=== PATIENT | male | born 1955 | race Caucasian/White ===

== ENCOUNTER 2019-12-10 00:58 | Outpatient (CLI) | payer MEDICARE, SELFPAY ==
[2019-12-10 18:59] LABS: SARS-CoV-2 RNA PCR Negative
== END 2019-12-10 00:59 | disposition home or self-care (01) ==
LOC: ANHCOVIDDT 00:59
PROVIDERS: PCP Internal Medicine; Visit Provider Internal Medicine Cardiovascular Disease
DX: Z01.812 Encounter for preprocedural laboratory examination (principal); Z20.828 Contact with and (suspected) exposure to other viral communicable diseases
CPT/HCPCS: 87635; C9803; U0003

== ENCOUNTER 2019-12-12 05:23 | Day surgery (SDC) | payer MEDICARE, SELFPAY ==
[2019-12-09 19:06] VITALS: BMI 54.1
--- NOTE | 2019-12-12 08:30 | ECG_ITS ---
Measurements Intervals [place] Rate: 132 P: MT: 0 QRS: -39 QRSD: 143 T: 29 QT: 210 QTc: 312 Interpretive Statements ATRIAL FLUTTER/TACHYCARDIA WITH RAPID VENTRICULAR RESPONSE LEFT AXIS DEVIATION RIGHT BUNDLE BRANCH BLOCK BASELINE ARTIFACT- I, III, AVF ABNORMAL ECG Electronically Signed On 12-12-2019 9:06:37 CDT by Neville Gould D.O.
[2019-12-12 09:14] VITALS: BP 153/96; PULSE 133; RESP 26; TEMP 36.7; O2SAT 100
[2019-12-12 09:21] LABS: Anion Gap 5 mmol/L (8-16); Blood Urea Nitrogen 31 mg/dL (9-20); Calcium 8.8 mg/dL (8.4-10.2); Carbon Dioxide 37 mmol/L (22-30); Chloride 96 mmol/L (98-107); Estimated CRCL calculation 82 ml/min; Estimated Glomerular Filt Rate > 60; Glucose 192 mg/dL (75-110); Potassium 4.4 mmol/L (3.4-5.0); Sodium 138 mmol/L (137-145)
--- NOTE | 2019-12-12 09:46 | WPDANESEPP ---
Anes - Eval Pre Procedure Procedure: Operation Date: 12/12/19 10:00 Proposed Procedures p Electrical Cardioversion - Thompson Seth MD Date/Time: 12/12/19 09:46 Surgeon: Rolo Preop Diagnosis: afib Pre Op Diagnosis: a-fib Patient Data Age: 64 Gender: M Height: 1.68 m Weight: 152 kg Last Vital Signs Temp 36.7 C 12/12/19 09:14 Pulse 133 H 12/12/19 09:14 Resp 26 H 12/12/19 09:14 BP 153/96 H 12/12/19 09:14 Pulse Ox 100 12/12/19 09:14 Allergies Allergy/AdvReac Type Severity Reaction Status Date / Time ibuprofen Allergy Unknown Other Verified 12/09/19 18:35 Penicillins Allergy Unknown Unknown Verified 12/09/19 18:35 Home Medications Medication Instructions Recorded Confirmed Type budesonide-formoterol HFA 160 2 puff INHALATION Q12H #10.2 gm 04/04/19 12/09/19 Rx mcg-4.5 mcg/actuation aerosol inhaler bupropion HCl 300 mg 24 hr tablet, 300 mg PO QAM 06/02/19 12/09/19 History extended release carvedilol 12.5 mg tablet 12.5 mg PO Q12H 06/02/19 12/09/19 History fluticasone propionate 50 1 spray NASAL BID 06/02/19 12/09/19 History mcg/actuation nasal spray,suspension insulin lispro 100 unit/mL 1 sliding scale dose SUB-Q 06/02/19 12/09/19 History subcutaneous cartridge USEASDIRECTD metformin 1,000 mg tablet 1,000 mg PO BID 06/02/19 12/09/19 History rivaroxaban 20 mg tablet 20 mg PO DAILY 06/02/19 12/09/19 History simvastatin 40 mg tablet 40 mg PO DAILY 06/02/19 12/09/19 History tamsulosin 0.4 mg capsule 0.4 mg PO DAILY 06/02/19 12/09/19 History tiotropium bromide 18 mcg capsule 1 cap INHALATION DAILY 06/02/19 12/09/19 History with inhalation device albuterol sulfate 2 puff INHALATION Q4-6H PRN 12/09/19 12/09/19 History amiodarone 400 mg PO DAILY 12/09/19 12/12/19 History furosemide 20 mg PO DAILY 12/09/19 12/09/19 History hydrocodone-acetaminophen 1 tablet PO Q8H PRN 12/09/19 12/09/19 History insulin NPH isoph U-100 human 65 unit SUBCUT BID 12/09/19 12/09/19 History [Humulin N NPH U-100 Insulin] valsartan-hydrochlorothiazide 1 tablet PO DAILY 12/09/19 12/09/19 History [Diovan HCT] Laboratory Tests 12/12/19 08:57 Sodium 138 mmol/L mmol/L (137-145) Potassium 4.4 mmol/L mmol/L (3.4-5.0) Chloride 96 mmol/L L mmol/L (98-107) Carbon Dioxide 37 mmol/L H mmol/L (22-30) Anion Gap 5 mmol/L L mmol/L (8-16) BUN 31 mg/dL H mg/dL (9-20) Creatinine 1.10 mg/dL mg/dL (0.7-1.3) Estim Creat Clear Calc 82 ml/min ml/min Estimated GFR > 60 (59 - ) Glucose 192 mg/dL H mg/dL (75-110) Calcium 8.8 mg/dL mg/dL (8.4-10.2) Magnesium 2.0 mg/dL mg/dL (1.6-2.3) ECG: afib Patient hx anesthesia problems: none Family hx anesthesia problems: none [facility] Past Medical History Medical History (Updated 12/12/19 @ 09:47 by Kaya Ordoñez CRNA) Anxiety Aortic aneurysm COPD (chronic obstructive pulmonary disease) DM (diabetes mellitus) Lung nodule Morbid obesity with BMI of 50.0-59.9, adult Neuropathy On home O2 NILE (obstructive sleep apnea) Rectal fistula Surgical History Surgical History (Updated 06/02/19 @ 10:34 by Yoni Levine CMA) History of cataract surgery History of hemorrhoidectomy Family History Family History (Updated 01/13/17 @ 09:40 by DOCTOR UNKNOWN) Mother Cerebrovascular accident Father Family history of sleep apnea Family history of atrial fibrillation Social History Social History Smoking packs per day: 10 Smoking cigarettes per day: 200.0 Years smoked: 30 Smoking pack-years: 300.00 Smoking status: Former smoker Tobacco type: cigarettes Smoking end date: 03/02/05 Additional smoking assessment comments: QUIT 2005. 03/03 PPD X 30 YEARS Alcohol intake: former Substance use: unknown Substance use type: does not use Living arrangements: alone Gender identity (if verbalized by the patient): Male Spiritual care concerns: No Exam Day of Proc
--- NOTE | 2019-12-12 09:53 | WPDHPUPDATE1 ---
History and Physical Update Update Date/Time: 12/12/19 09:53 History and Physical has been reviewed, including an updated exam of the patient. There are NO changes in the patient's condition. Risks, benefits, and alternatives have been discussed and questions answered. Patient agrees to proceed with procedure. Subjective: Patient with diastolic heart failure, sleep apnea, morbid obesity. Also has atrial flutter brought to the hospital because outpatient elective cardioversion Objective: Regularly irregular. 1+ bilateral lower extremity edema. Ulceration noted to the left lateral lower extremity. Nasal cannula in place Assessment: 1. Atrial flutter with rapid ventricular response 2. Morbid obesity 3. Chronic respiratory failure 4. Sleep apnea Plan: Outpatient elective cardioversion with anesthesia
--- NOTE | 2019-12-12 09:55 | WPDMODSED ---
Moderate Sedation Note-Pt Data Patient Data Diagnosis: Atrial flutter Present Complaint: Atrial flutter Procedure to be performed/Plan: Electrical Cardioversion Allergies Allergy/AdvReac Type Severity Reaction Status Date / Time ibuprofen Allergy Unknown Other Verified 12/09/19 18:35 Penicillins Allergy Unknown Unknown Verified 12/09/19 18:35 Home Medications Medication Instructions Recorded Confirmed Type budesonide-formoterol HFA 160 2 puff INHALATION Q12H #10.2 gm 04/04/19 12/09/19 Rx mcg-4.5 mcg/actuation aerosol inhaler bupropion HCl 300 mg 24 hr tablet, 300 mg PO QAM 06/02/19 12/09/19 History extended release carvedilol 12.5 mg tablet 12.5 mg PO Q12H 06/02/19 12/09/19 History fluticasone propionate 50 1 spray NASAL BID 06/02/19 12/09/19 History mcg/actuation nasal spray,suspension insulin lispro 100 unit/mL 1 sliding scale dose SUB-Q 06/02/19 12/09/19 History subcutaneous cartridge USEASDIRECTD metformin 1,000 mg tablet 1,000 mg PO BID 06/02/19 12/09/19 History rivaroxaban 20 mg tablet 20 mg PO DAILY 06/02/19 12/09/19 History simvastatin 40 mg tablet 40 mg PO DAILY 06/02/19 12/09/19 History tamsulosin 0.4 mg capsule 0.4 mg PO DAILY 06/02/19 12/09/19 History tiotropium bromide 18 mcg capsule 1 cap INHALATION DAILY 06/02/19 12/09/19 History with inhalation device albuterol sulfate 2 puff INHALATION Q4-6H PRN 12/09/19 12/09/19 History amiodarone 400 mg PO DAILY 12/09/19 12/12/19 History furosemide 20 mg PO DAILY 12/09/19 12/09/19 History hydrocodone-acetaminophen 1 tablet PO Q8H PRN 12/09/19 12/09/19 History insulin NPH isoph U-100 human 65 unit SUBCUT BID 12/09/19 12/09/19 History [Humulin N NPH U-100 Insulin] valsartan-hydrochlorothiazide 1 tablet PO DAILY 12/09/19 12/09/19 History [Diovan HCT] Current Medications: Active Medications Sodium Chloride (Normal Saline Iv) 1,000 mls @ 30 mls/hr IV CONT .Q24H [facility] Sedation/Anesthesia: No previous sedation/anesthesia problems (including family history). [facility] Past Medical History Medical History Anxiety Aortic aneurysm COPD (chronic obstructive pulmonary disease) DM (diabetes mellitus) Lung nodule Morbid obesity with BMI of 50.0-59.9, adult Neuropathy On home O2 NILE (obstructive sleep apnea) Rectal fistula Surgical History Surgical History History of cataract surgery History of hemorrhoidectomy Family History Family History Mother Cerebrovascular accident Father Family history of sleep apnea Family history of atrial fibrillation Social History Social History Smoking packs per day: 10 Smoking cigarettes per day: 200.0 Years smoked: 30 Smoking pack-years: 300.00 Smoking status: Former smoker Tobacco type: cigarettes Smoking end date: 03/02/05 Additional smoking assessment comments: QUIT 2005. 03/03 PPD X 30 YEARS Alcohol intake: former Substance use: unknown Substance use type: does not use Living arrangements: alone Gender identity (if verbalized by the patient): Male Spiritual care concerns: No Mod Sed Physical Exam Physical Exam Pre Procedural Exam: Normal: Appearance, Eyes, Ears, Lungs, Heart Size and Neuro Exam and Variation: Nose (Nasal cannula in place), Neck (Very short neck, sick), Throat (Small airway), Airway, Heart Rate (Tachycardic), Heart Rhythm (Regularly irregular), Extremities (Edema and wound noted) and Skin (As above) Hours since solid foods: 12 Hours since liquid intake: 12 Internal Medicine - PN: Obj Da Vital Signs Vital Signs: Vital Signs - 24 hr 12/12/19 09:14 Temperature 36.7 C Pulse Rate 133 H Respiratory Rate 26 H Blood Pressure 153/96 H Pulse Oximetry 100 Meds/Results Medications: Active Medications Generic Name Dose Route S
--- NOTE | 2019-12-12 10:05 | WPDANESEFPP ---
Anes - Eval Final PreProcedure Day of Procedure 12/12/19 10:05 Patient weight: morbidly obese Heart: irregular rhythm Lungs: clear to auscultation Airway: Mallampati scale class III Neurological: alert and oriented Last oral intake: >/= 8 hours ASA classification: IV Emergent: no Anesthetic plan: proceed Anesthesia type and monitoring: general GIVS and standard monitoring Informed Consent: The patient's anesthetic plan and its attendant risks and benefits were discussed with the patient/family/POA. Questions were solicited and answers provided to the satisfaction of the patient/family/POA.
--- NOTE | 2019-12-12 10:09 | P.PCNCVR_ITS ---
Cardioversion Cardioversion Date of procedure: 12/12/19 Procedure: Electrical cardioversion Pre-op diagnosis: Atrial flutter Post-op diagnosis: same Indications: Atrial flutter Description of procedure: After discussing the risks, benefits alternatives of the procedure the patient agreeable via verbal and written informed consent. Risks discussed included skin irritation or burn, shocking into more problematic heart rhythm, adverse reaction to anesthesia, stroke. Anesthesia provided sedation Complications: None Blood loss: None Sedation: Propofol per Anesthesia. Please see separate report Findings: After adequate sedation, the previously placed anterior and posterior defibrillator pads were in place. Two hundred joules of synchronized biphasic energy was used to restore sinus rhythm from atrial flutter. Conclusion: Successful roman catholic of sinus rhythm from atrial flutter using 200 joules of biphasic synchronized energy
--- NOTE | 2019-12-12 10:15 | ECG_ITS ---
Measurements Intervals [place] Rate: 100 P: 13 [place]: 182 QRS: 13 QRSD: 146 T: 14 QT: 370 QTc: 478 Interpretive Statements SINUS TACHYCARDIA RIGHT BUNDLE BRANCH BLOCK ABNORMAL ECG Electronically Signed On 12-12-2019 15:45:38 CDT by Neville Gould D.O.
[2019-12-12 10:30] VITALS: BP 150/93; PULSE 104; RESP 20; O2SAT 94
[2019-12-12 10:45] VITALS: BP 151/86; PULSE 109; RESP 18; O2SAT 95
[2019-12-12 11:00] VITALS: BP 151/73; PULSE 107; RESP 21; O2SAT 94
[2019-12-12 11:15] VITALS: BP 130/91; PULSE 108; RESP 23; O2SAT 98
== END 2019-12-12 11:53 | disposition home or self-care (01) ==
PROVIDERS: PCP Internal Medicine; Visit Provider Internal Medicine Cardiovascular Disease
PROC: 5A2204Z Restoration of Cardiac Rhythm, Single (ICD-10-PCS; principal; 2019-12-12 10:00)
DX: I48.92 Unspecified atrial flutter (principal); E11.40 Type 2 diabetes mellitus with diabetic neuropathy, unspecified; G47.33 Obstructive sleep apnea (adult) (pediatric); F41.9 Anxiety disorder, unspecified; I71.4 Abdominal aortic aneurysm, without rupture; Z99.81 Dependence on supplemental oxygen; Z79.01 Long term (current) use of anticoagulants; Z79.4 Long term (current) use of insulin; Z79.84 Long term (current) use of oral hypoglycemic drugs; Z87.891 Personal history of nicotine dependence
CPT/HCPCS: 36415; 80048; 83735; 92960; 93005; J2704

== ENCOUNTER 2020-05-27 18:56 | Inpatient (IN) | payer MEDICARE, MEDICAID, SELFPAY ==
--- NOTE | ~2020-05-27 | XR_ITS ---
EXAMINATION: XR chest 1V portable EXAM DATE: 05/27/2020 20:30 INDICATION: Shortness of breath. Aortic aneurysm. COPD. TECHNIQUE: Portable AP frontal chest x-ray was obtained. Comparison is made to prior examination from 10/15/2016. FINDINGS: There is enlarged heart size and mediastinum widening. Lungs are poorly penetrated. There i s pulmonary vascular congestion. There may be pulmonary edema. No dense confluent consolidation or pn eumothorax. No sizable pleural effusion. There are no osseous abnormalities identified. IMPRESSION: 1. Cardiomegaly, congestion and possible pulmonary edema. 2. Prominent mckayla and superior mediastinum differential diagnosis includes large amount of mediastin al fat, lymphadenopathy, pulmonary arterial hypertension, aortic aneurysm. This is more pronounced th an prior study. Consider follow-up chest CT. Reviewed, dictated and finalized at location A. IMPRESSION: 1. Cardiomegaly, congestion and possible pulmonary edema. 2. Prominent mckayla and superior mediastinum differential diagnosis includes lar ge amount of mediastinal fat, lymphadenopathy, pulmonary arterial hypertension, aortic aneurysm. This is more pronounced than prior study. Consider follow-up chest CT.
--- NOTE | ~2020-05-27 | CT_ITS ---
EXAMINATION: CT brain wo con EXAM DATE: 05/27/2020 20:06 INDICATION: Left leg weakness, hit head, chronic anticoagulation. TECHNIQUE: Spiral CT of the head was performed without contrast. Axial, coronal and sagittal images were reviewed. The dose-length product (DLP) for this examination was 681.00 mGy-cm. The exposure w as tailored according to patient size, and iterative reconstruction (ASIR) was used as additional dos e reduction technique. There is no prior study for comparison. FINDINGS: There is no acute intraparenchymal hemorrhage. No evidence of intraparenchymal brain mass lesion. No evidence of acute infarction. Please note that initial head CT has limited sensitivity f or small or acute infarctions. There is mild to moderate periventricular and subcortical hypodensity, nonspecific but probably related to small vessel ischemic disease. There is mild prominence of the sulci and ventricles related to cerebral atrophy. There is intracranial carotid arteriosclerosis. There are no extra-axial collections. There is no mass effect or midline shift. Patient has had bi lateral ocular lens surgery. Soft tissue is unremarkable. The visualized sinuses and mastoid air ce lls are well aerated. IMPRESSION: 1. No acute intracranial findings. 2. Chronic age related findings. Reviewed, dictated and finalized at location A.
--- NOTE | ~2020-05-27 | XR_ITS ---
EXAMINATION: XR hip LT 2V w AP pelvis EXAM DATE: 05/27/2020 20:31 INDICATION: Fall, left hip pain. TECHNIQUE: Left hip frontal, 'frog leg' projections for interpretation. Frontal projection pelvis. There is no prior study for comparison. FINDINGS: Smooth left hip femoral head contour, no radiographic evidence of avascular necrosis. Ther e are no acute pelvic or left hip fractures or dislocations identified. There is no subcutaneous gas . The soft tissue is unremarkable. There are no radiopaque foreign bodies. IMPRESSION: No acute osseous findings. Reviewed, dictated and finalized at location A. IMPRESSION: No acute osseous findings.
--- NOTE | ~2020-05-27 | XR_ITS ---
EXAMINATION: XR lumbar spine 2-3V EXAM DATE: 05/27/2020 20:31 INDICATION: Fall, back pain. Initial encounter. TECHNIQUE: Lumber spine frontal, lateral, lateral L5-S1 projections for interpretation. There is no prior study for comparison. FINDINGS: Study limited from underpenetration. There may be a few millimeters of retrolisthesis L5 o n S1. Otherwise the vertebral bodies appear aligned. Mild diffuse loss of vertebral body heights. No acute fracture line is identified. Sacrum, sacroiliac joints, sacral arcuate lines are intact on the frontal image. Evidence of mild lumbar disc disease. Facet joints poorly visualized but there is aimee e arthropathy. IMPRESSION: Limited exam without acute fracture identified. Reviewed, dictated and finalized at location A.
--- NOTE | ~2020-05-27 | CT_ITS ---
EXAMINATION: CT diagnostic chest wo con EXAM DATE: 05/30/2020 09:45 INDICATION: History of 4 mm RUL nodule. TECHNIQUE: Spiral CT of the chest without contrast. Axial, coronal and sagittal images were reviewe d. Coronal maximum intensity pixel images of chest reviewed. The dose-length product (DLP) for this examination was 1080.79 mGy-cm. The exposure was tailored according to patient size (auto mA exposu re control), and iterative reconstruction (ASIR) was used as additional dose reduction technique. Com parison is made to prior examination from 01/11/2016. FINDINGS: There is scattered bibasilar linear atelectasis. Previously seen right upper lobe 4 mm nod ule has decreased in size, now punctate. This is postinfectious. There are no pleural or pericardial effusions. Tracheobronchial tree is patent. There is no mediastinal, hilar or axillary lymphaden opathy. There is no pneumothorax. There is mild cardiomegaly. No evidence of coronary arterial c alcification. Upper abdomen is unremarkable. There is mild to moderate thoracic spondylosis withou t osteoblastic or osteolytic lesions identified. There are old left rib fractures. IMPRESSION: 1. Scattered bibasilar subsegmental atelectasis. 2. No suspicious pulmonary nodules. 3. Cardiomegaly. Reviewed, dictated and finalized at location A.
[2020-05-27 19:01] VITALS: BP 158/88; PULSE 74; RESP 22; TEMP 36.9; O2SAT 98
--- NOTE | 2020-05-27 19:01 | ECG_ITS ---
Measurements Intervals [place] Rate: 70 P: -22 [place]: 150 QRS: 45 QRSD: 127 T: 16 QT: 375 QTc: 406 Interpretive Statements SINUS RHYTHM RIGHT BUNDLE BRANCH BLOCK BASELINE ARTIFACT- II, III, AVL, AVF, V3-V4 ABNORMAL ECG Electronically Signed On 05-27-2020 20:36:12 CDT by Neville Gould D.O.
--- NOTE | 2020-05-27 19:38 | ED.GENADULT ---
HPI - General Adult General Chief complaint: Extremity Problem,Nontraumatic Stated complaint: lower extremity swelling Time Seen by Provider: 05/27/20 19:03 Source: patient Mode of arrival: EMS Limitations: no limitations History of Present Illness HPI narrative: This is a 64 year old male with history of COPD, chronic O2 4L NC , NILE on CPAP, CHF who presents for evaluation of leg swelling and scrotal swelling. Patient has chronic swelling to his legs but he states he now has swelling to his scrotum since Thursday. He reports that his left leg seems to give out and this caused him to fall on . He reports his left leg has felt weak for over 1 week. He denies left arm weakness. She reports bilateral neuropathy in both feet. He states he hit his head on but he denies LOC. He takes Xarelto daily for atrial flutter. He also notices he has a chronic wound to his left lower leg that has worsened since Thursday. He reports drainage but denies pain. He denies fever, chills, nausea, or vomiting. He does reports worsening shortness of breath but he denies cough or chest pain. His crop ranch hand is Dr. Seth and his central office supervisor is Dr. Dean. Related Data Home Medications Medication Instructions Recorded Confirmed bupropion HCl 300 mg 24 hr tablet, 300 mg PO QAM 06/02/19 05/28/20 extended release carvedilol 12.5 mg tablet 12.5 mg PO Q12H 06/02/19 05/28/20 insulin lispro 100 unit/mL 50 unit SUB-Q AC 06/02/19 05/28/20 subcutaneous cartridge metformin 1,000 mg tablet 1,000 mg PO BID 06/02/19 05/28/20 simvastatin 40 mg tablet 40 mg PO DAILY 06/02/19 05/28/20 tamsulosin 0.4 mg capsule 0.4 mg PO DAILY 06/02/19 05/28/20 tiotropium bromide 18 mcg capsule 1 cap INHALATION DAILY 06/02/19 05/28/20 with inhalation device Humulin N NPH U-100 Insulin 60 unit SUBCUT BID 12/09/19 05/28/20 albuterol sulfate 2 puff INHALATION Q4-6H PRN 12/09/19 05/28/20 amiodarone 400 mg PO DAILY 12/09/19 05/28/20 furosemide 20 mg PO DAILY 12/09/19 05/28/20 hydrocodone-acetaminophen 1 tablet PO Q8H PRN 12/09/19 05/28/20 rivaroxaban [Xarelto] 20 mg PO DAILY 05/27/20 05/28/20 cetirizine 10 mg PO HS 05/28/20 05/28/20 fluticasone propionate [Flonase] 1 spray INTRANASAL Q12H 05/28/20 05/28/20 losartan-hydrochlorothiazide 1 tablet PO DAILY 05/28/20 05/28/20 Allergies Allergy/AdvReac Type Severity Reaction Status Date / Time ibuprofen Allergy Unknown Other Verified 02/14/20 14:40 Penicillins Allergy Unknown Unknown Verified 02/14/20 14:40 Review of Systems Review of Systems: All systems reviewed & are unremarkable except as noted in HPI and below Constitutional: Constitutional: Denies chills, Denies fever(s) and Reports weakness Cardiovascular: Cardiovascular: Denies chest pain Respiratory: Respiratory: Denies cough and Reports dyspnea Gastrointestinal: Gastrointestinal: Denies abdominal pain, Denies diarrhea, Denies nausea and Denies vomiting Genitourinary: Genitourinary: Denies dysuria and Denies urinary frequency Musculoskeletal: Musculoskeletal: Denies back pain Neurologic: Reports numbness and Reports weakness [facility] Past Medical History Medical History (Updated 05/28/20 @ 05:30 by Nelida Ennis MD) Anxiety Aortic aneurysm 4.1 cm aortic root dilatation Atrial flutter (~09/2016) Paroxysmal atrial flutter Status post cardioversion 12/2019. On chronic anticoagulation was Xarelto BPH (benign prostatic hyperplasia) Chronic respiratory failure with hypoxia and hypercapnia Common variable immunodeficiency, unspecified COPD (chronic obstructive pulmonary disease) PFTs 01/2016: Mild to moderate restrictive ventilatory defect with possible obstructive ventilatory defect suggestive by air trapping. Moderately decreased DLCO Diabetic peripheral neuropathy Diastolic CHF Echocardiogram January 2016: Technically suboptimal study. Mild concentric left ventricular hypertrophy. Increased left heart filling pressures. EF 65%.
[2020-05-27 19:45] LABS: Base Excess ABG 10.9 mEq/l (+/-2.0); Carboxyhemoglobin 0.7 % THb (0-2.0); Fractional Inspired Oxygen 32 %; HCO3 ABG 40.9 mEq/l (22.0-26.0); Methemoglobin ABG 0.4 %THb (0-1.5); Oxygen Content ABG 17.1 %vol (16.0-22.0); Oxygen Saturation ABG 98.9 % (95.0-100.0); Oxyhemoglobin 97.6 % THb (90.0-100.0); Reduced Hemoglobin 1.3 %THb (0-5.0); Total Hemoglobin 12.2 g/dL (12.0-18.0)
[2020-05-27] MEDS: FUROSEMIDE INJ 40 MG/4 ML VIAL IV PUSH (19:45)
--- NOTE | 2020-05-27 19:45 | PC.NURSE ---
pt told that we need urine. pt denies being able to urinate at this time. this rn gave pt lasix. instructed pt to use call light when able to urinate. hung kraft in room getting blood from pt.
[2020-05-27 19:46] LABS: pH ABG 7.282 (7.350-7.450)
[2020-05-27 19:47] LABS: PCO2 ABG 88.7 mmHg (35.0-45.0)
[2020-05-27 19:48] LABS: Device NASAL CANNULA; Modified Allen's Test Pass; Site Drawn RIGHT RADIAL
[2020-05-27 19:54] VITALS: O2SAT 98
[2020-05-27 19:56] LABS: Basophils Percent Auto 0.4 % (0.2-1.2); Eosinophils Absolute Auto 0.1 K/mm3 (0-0.3); Eosinophils Percent Auto 0.7 % (0-4.4); Hematocrit 37.7 % (42.0-52.0); Hemoglobin 11.4 g/dL (14.0-18.0); Immature Granulocyte Absolute 0.02 K/mm3 (0.00-0.031); Immature Granulocyte Percent A 0.3 % (0-0.5); Lymphocytes Absolute Auto 0.93 K/mm3 (0.9-3.2); Lymphocytes Percent Auto 13.9 % (18.3-44.2); Mean Corpuscular HGB Conc 30.2 g/dl (32-36); Mean Corpuscular Hemoglobin 30.5 pg (26-34); Mean Corpuscular Volume 100.8 fl (80-100); Mean Platelet Volume 11.3 fl (7.4-10.4); Monocytes Absolute Auto 0.9 K/mm3 (0.1-0.6); Monocytes Percent Auto 13.7 % (2.6-8.5); Neutrophils Absolute Auto 4.8 K/mm3 (1.3-6.7); Platelet Count Result 169 k/mm3 (150-375); Red Blood Count 3.74 M/mm3 (4.6-6.20); Red Cell Distribution Width 14.3 % (11.5-14.5); White Blood Count 6.7 K/mm3 (4.5-10.0)
[2020-05-27 20:05] LABS: INR 1.4
[2020-05-27 20:06] LABS: Partial Thromboplastin Time 28.2 SECONDS (22.3-36.8)
[2020-05-27 20:08] LABS: Potassium 5.1 mmol/L (3.4-5.0)
[2020-05-27 20:14] LABS: Alanine Aminotransferase 45 U/L (4-50); Alkaline Phosphatase 62 U/L (38-126); Aspartate Amino Transferase 39 U/L (17-59); Bilirubin,Total 0.4 mg/dL (0.2-1.3); Blood Urea Nitrogen 38 mg/dL (9-20); CRP 0.8 mg/dL (<1.0); Calcium 8.8 mg/dL (8.4-10.2); Carbon Dioxide > 40 mmol/L (22-30); Chloride 91 mmol/L (98-107); Estimated CRCL calculation 85 ml/min; Estimated Glomerular Filt Rate > 60; Glucose 152 mg/dL (75-110); Sodium 137 mmol/L (137-145)
[2020-05-27 20:20] LABS: NT Pro B Type Natriuretic Pept 304 PG/ML (5-100); Troponin I < 0.012 ng/mL (0.000-0.034)
[2020-05-27 20:52] LABS: Add Urine Microscopic? NO; Appearance Urine Clear (Clear); Bilirubin Urine Negative (Negative); Blood Urine Negative (Negative); Color Urine Straw (Yellow); Glucose Urine UA Negative (Negative); Ketones Urine Negative (Negative); Leukocyte Esterase Ur Negative LEU/UL (Negative); Nitrate Urine Negative (Negative); Protein Urine Negative (Negative); Urobilinogen Urine Negative mg/dL (<2.0)
[2020-05-27 20:57] VITALS: BP 121/98; PULSE 74; RESP 22; O2SAT 98
[2020-05-27 21:55] LABS: Alveolar/Arterial O2 Gradient 37.1 mmHg; Base Excess ABG 13.2 mEq/l (+/-2.0); Carboxyhemoglobin 0.7 % THb (0-2.0); Fractional Inspired Oxygen 26 %; HCO3 ABG 41.8 mEq/l (22.0-26.0); Methemoglobin ABG 0.2 %THb (0-1.5); Oxygen Content ABG 15.2 %vol (16.0-22.0); Oxygen Saturation ABG 87.8 % (95.0-100.0); Oxyhemoglobin 88.5 % THb (90.0-100.0); PO2 ABG 58.2 mmHg (80.0-100.0); PO2 FiO2 Ratio Arterial Blood 2.24 %; Reduced Hemoglobin 10.6 %THb (0-5.0); Total Hemoglobin 12.2 g/dL (12.0-18.0); pH ABG 7.358 (7.350-7.450)
[2020-05-27 21:56] LABS: Device NASAL CANNULA; Liters per Minute 1.5 LPM; Modified Allen's Test Pass; Site Drawn RIGHT RADIAL
--- NOTE | 2020-05-27 22:16 | PM.IMHP ---
H&P: HPI History of Present Illness Date/Time: 05/27/20 22:16 Chief Complaint: Leg swelling and scrotal swelling Narrative: 64-year-old male with a past medical history of CHF, atrial fibrillation, COPD, morbid obesity and obstructive sleep apnea who presented to the ER with increased shortness of breath, leg swelling and scrotal edema. The patient reports that he has not used his CPAP in over a month. Quit using his CPAP due to feeling congested in his nose. He had tried taking Zyrtec and Flonase for his nasal congestion without relief. He had also been prescribed antibiotics in the past for his nasal congestion without relief. Ever since he quit using his CPAP use had progressive swelling of his lower extremities with the edema now extending to his abdomen and scrotum. Since his symptoms have started he has become progressively weaker. He has had increasing dyspnea on exertion. He is no longer able to sleep in bed and has to sleep in a recliner. He does not weigh himself because he does not have a scale at home. He denies any chest pain or palpitations. He has had a mild intermittent cough. He denies any fevers, chills or known COVID exposure. He was instructed by his oil well engineer to decrease his home O2 from 5 L down to 2 or 3 L nasal cannula as he was getting excessive amounts of oxygen. The patient did not comply with this and has continued to the use 5 L nasal cannula. It sounds as if the patient may have actually been increasing his supplemental oxygen when he was feeling more short of breath. He reports that on Thursday (2 days prior to presentation) he tripped on his oxygen tubing and laid on the floor for several hours before he could get himself up. Ever since he fell he has not been getting up to get food or drink. He has not been able to urinate in the last 2 days. He has not had a bowel movement in 3 days. He reports that his abdomen feeling full when it is palpated. He does have some chronic lower extremity wounds on his lower extremities. Some of the wounds have been present for almost 2 months. He reports that when the wounds opened a weep clear fluid. He has chronic neuropathy but denies any new leg pain. He reports that his legs in general just feel weaker. He checks his glucoses in the morning and before bedtime as well as 2 hours before he eats in 2 hours after he eats. He reports that his average glucose over the last 2 weeks has been around 150 and his average glucose over the last month has been around 171. Review of Systems Review of Systems: Narrative: 12 systems were reviewed with pertinent positives and negatives per HPI. Except as documented in the HPI, all other systems were reviewed and are negative. PENDING SALE TO [facility] Past Medical History Medical History (Updated 05/27/20 @ 22:33 by Sarina Mayer DO) Anxiety Aortic aneurysm 4.1 cm aortic root dilatation Atrial flutter (~09/2016) Paroxysmal atrial flutter Status post cardioversion 12/2019. On chronic anticoagulation was Xarelto BPH (benign prostatic hyperplasia) Chronic respiratory failure with hypoxia and hypercapnia Common variable immunodeficiency, unspecified COPD (chronic obstructive pulmonary disease) PFTs 01/2016: Mild to moderate restrictive ventilatory defect with possible obstructive ventilatory defect suggestive by air trapping. Moderately decreased DLCO Diabetic peripheral neuropathy Diastolic CHF Echocardiogram January 2016: Technically suboptimal study. Mild concentric left ventricular hypertrophy. Increased left heart filling pressures. EF 65%. Grade 3 diastolic dysfunction. Moderate left atrial enlargement. Normal RVSP. Mildly dilated aortic root 4.1 cm DM (diabetes mellitus) Lung nodule Noted on CT 01/11/2016 4 mm right upper lobe nodule patient was unable to follow-up for repeat CT scan due to not being able to lay on his back Morbid obesity with BMI of 50.0-59.9, adult On home O2 NILE (obstructive sleep apnea) CPAP pressure 17 S
[2020-05-27 22:27] VITALS: BP 124/77; PULSE 80; RESP 20; O2SAT 99
[2020-05-27 22:35] VITALS: BP 152/86; PULSE 77; RESP 20; TEMP 36.3; O2SAT 92; BMI 55.4
--- NOTE | 2020-05-27 22:35 | PC.NURSE ---
This patient, Matt Theodore, was admitted to IMU Room 204-01. Patient/family oriented to hospital policies and general routines including ID bracelet, bed and alarms, visiting hours, pain management, procedures, bathroom and other care routines, personal items, smoking policy, room service/diet, and visiting hours. Information on how to activate the Rapid Response Team has been discussed. Patient/Family are encouraged to report perceived risks to care and to ask questions if they do not understand what they are told or what they should do.
[2020-05-27 22:53] VITALS: PULSE 71; O2SAT 91
[2020-05-28] VITALS (20 sets, daily range): BP systolic 121–177; BP diastolic 46–85; PULSE 54–94; RESP 14–24; TEMP 36.3–37.1; O2SAT 91–97
[2020-05-28 04:17] LABS: Alveolar/Arterial O2 Gradient 22.6 mmHg; Base Excess ABG 14.5 mEq/l (+/-2.0); Fractional Inspired Oxygen 25 %; HCO3 ABG 41.8 mEq/l (22.0-26.0); Oxyhemoglobin 94.4 % THb (90.0-100.0); PO2 ABG 76.6 mmHg (80.0-100.0); PO2 FiO2 Ratio Arterial Blood 3.06 %; pH ABG 7.416 (7.350-7.450)
[2020-05-28 04:18] LABS: Device BIPAP; Modified Allen's Test Pass; PCO2 ABG 66.6 mmHg (35.0-45.0); Site Drawn RIGHT RADIAL
[2020-05-28 04:19] LABS: Expiratory Pressure 10 cmH2O; Inspiratory Pressure 25 cmH2O
[2020-05-28 04:36] LABS: Hematocrit 36.6 % (42.0-52.0); Hemoglobin 11.2 g/dL (14.0-18.0); Mean Corpuscular HGB Conc 30.6 g/dl (32-36); Mean Corpuscular Hemoglobin 30.3 pg (26-34); Mean Corpuscular Volume 98.9 fl (80-100); Mean Platelet Volume 11.9 fl (7.4-10.4); Platelet Count Result 170 k/mm3 (150-375); Red Cell Distribution Width 14.4 % (11.5-14.5); White Blood Count 7.5 K/mm3 (4.5-10.0)
[2020-05-28 04:54] LABS: Blood Urea Nitrogen 38 mg/dL (9-20); Calcium 8.8 mg/dL (8.4-10.2); Carbon Dioxide > 40 mmol/L (22-30); Chloride 90 mmol/L (98-107); Estimated CRCL calculation 92 ml/min; Estimated Glomerular Filt Rate > 60; Glucose 115 mg/dL (75-110); Potassium 4.9 mmol/L (3.4-5.0); Sodium 138 mmol/L (137-145)
[2020-05-28 05:25] LABS: Hemoglobin A1C 6.2 % (<5.7)
--- NOTE | 2020-05-28 06:00 | ECHO_ITS ---
Patient Info Name: Matt Theodore Age: 64 years : 1955 Gender: Male Ht: 66 in Wt: 343 lbs BSA: 2.79 m2 HR: 86 bpm BP: 136 / 52 mmHg Heart Rhythm: Sinus Rhythm Technical Quality: Good Exam Date: 05/28/2020 10:52 AM Exam Location: [facility] Patient Status: Inpatient Admit Date: 05/28/2020 Staff Ordering Physician: Nelida Ennis MD Email Operations Manager: Robert Hatch RDCS, RT Attending Provider: Sarina Mayer DO Referring Physician: Raymon RUIZ; Exam Type: CA echo dop color flow w con Study Info Indications I50.9 - Heart failure, unspecified Complete two-dimensional, color flow and Doppler transthoracic echocardiogram is performed. Summary 1. Complete two-dimensional, color flow and Doppler transthoracic echocardiogram is performed. 2. Left ventricular chamber dimension is normal. 3. There is moderately increased left ventricular wall thickness. 4. Left ventricular systolic function is normal, estimated at 60-65%. 5. The left ventricular diastolic function is grade II diastolic dysfunction. 6. Left atrial chamber dimension is moderately enlarged. 7. The aortic valve is probable trileaflet. 8. There is mild aortic valve stenosis with a peak velocity of 275.98 cm/s, mean gradient of 10 mmHg, and aortic valve area of 1.76 cm2. 9. There is trace aortic valve regurgitation. 10. There is mild mitral valve regurgitation. Left Ventricle Left ventricular chamber dimension is normal. Left ventricular systolic function is normal, estimated at 60-65%. There is moderately increased left ventricular wall thickness. The left ventricular diastolic function is grade II diastolic dysfunction. Right Ventricle Right ventricular chamber dimension is normal. Right ventricular systolic function is normal. Left Atria Left atrial chamber dimension is moderately enlarged. Right Atria Right atrial chamber dimension is normal. Atrial Septum Intact interatrial septum visualized by color flow imaging. Aortic Valve The aortic valve is probable trileaflet. There is mild aortic valve stenosis with a peak velocity of 275.98 cm/s, mean gradient of 10 mmHg, and aortic valve area of 1.76 cm2. There is trace aortic valve regurgitation. Pulmonic Valve The pulmonic valve is not well visualized. There is no pulmonic valve stenosis. There is trace pulmonic regurgitation. Mitral Valve The mitral valve has calcified annulus. There is no mitral valve stenosis. There is mild mitral valve regurgitation. Tricuspid Valve The tricuspid valve leaflets are normal. There is no significant tricuspid valve stenosis. There is trace tricuspid valve regurgitation. Pericardium/Pleural The pericardium appears normal. There is no pericardial effusion. Inferior Vena Cava Dilated inferior vena cava with <50% collapse upon inspiration consistent with elevated right atrial pressure, 15 mmHg. Aorta The aortic root size at the sinus of Valsalva is normal. The prox ascending aorta size is normal. Left Ventricular Outflow Tract Name Value Normal LVOT 2D LVOT Diameter 1.96 cm LVOT Doppler LVOT Peak Veloci
[2020-05-28 08:32] LABS: Glucose Point of Care 118 (65-105)
[2020-05-28] MEDS: buPROPion HCL XL (24 HR) 150 MG TABCR 300 MG PO (09:01)
[2020-05-28] MEDS: carvediloL 12.5 MG TABLET PO ×2 (09:01→21:17)
[2020-05-28] MEDS: AMIODARONE HCL 200 MG TABLET 400 MG PO (09:01)
[2020-05-28] MEDS: TAMSULOSIN HCL 0.4 MG CAPSULE PO (09:02)
[2020-05-28] MEDS: SIMVASTATIN 20 MG TABLET 40 MG PO (09:02)
[2020-05-28] MEDS: RIVAROXABAN 20 MG TABLET PO (09:02)
[2020-05-28] MEDS: LOSARTAN POTASSIUM 100 MG TABLET PO (09:02)
[2020-05-28] MEDS: hydroCHLOROthiazide 25 MG TABLET PO (09:02)
[2020-05-28] MEDS: metFORMIN HCL 500 MG TABLET 1000 MG PO (09:02)
[2020-05-28] MEDS: HYDROcodone/acetaminophen (*CRX) 10-325 MG TABLET 1 TAB PO ×2 (09:05→17:38)
[2020-05-28] MEDS: SILVERGEL (ELTA) 45 ML 1 APPLIC TOPICAL (09:09)
[2020-05-28] MEDS: FUROSEMIDE INJ 40 MG/4 ML VIAL IV PUSH ×2 (09:11→21:17)
[2020-05-28] MEDS: TOLNAFTATE 1% POWDER 45 GM BTL 1 APPLIC TOPICAL ×2 (09:25→21:17)
[2020-05-28] MEDS: PERFLUTREN LIPID MICROSPHERES 1.5 ML VIAL DILUTED TO 10 ML TOTAL VOLUME IV PUSH (11:20)
[2020-05-28] MEDS: polyethylene glycoL 3350 17 GM POWD.PACK PO (11:41)
[2020-05-28 12:41] LABS: Glucose Point of Care 219 (65-105)
[2020-05-28] MEDS: INSULIN ASPART (*BKC) 100 UNITS/ML SUB-Q (12:45)
[2020-05-28] MEDS: INSULIN ASPART (*BKC) 100 UNITS/ML 50 UNITS SUB-Q (12:47)
--- NOTE | 2020-05-28 15:27 | PM.IMPN ---
Progress Note: A&P Assessment and Plan (1) Acute on chronic respiratory failure with hypercapnia: Code(s): J96.22 - Acute and chronic respiratory failure with hypercapnia Status: Acute Assessment and Plan: The patient was placed on BiPAP overnight Much improved We will obtain a pulmonology consult Unclear why decompensated BNP only is slightly elevated Chest x-ray reviewed Likely noncompliance with CPAP? Improved with diuresis (2) CHF exacerbation: Code(s): I50.9 - Heart failure, unspecified Status: Acute Assessment and Plan: Echocardiogram ejection fraction 60-65% Grade ii diastolic dysfunction monitor intake and output (3) Lower extremity edema: Code(s): R60.0 - Localized edema Status: Acute Assessment and Plan: Chronic lymphedema Now worsened Compression stocking Wound care consult (4) On home O2: Code(s): Z99.81 - Dependence on supplemental oxygen Status: Acute Assessment and Plan: Patient on 4 L by nasal cannula at home (5) NILE (obstructive sleep apnea): Code(s): G47.33 - Obstructive sleep apnea (adult) (pediatric) Status: Acute Assessment and Plan: On CPAP (6) Morbid obesity with BMI of 50.0-59.9, adult: Code(s): E66.01 - Morbid (severe) obesity due to excess calories; Z68.43 - Body mass index [BMI] 50.0-59.9, adult Status: Acute Assessment and Plan: Lifestyle and diet modifications Calorie restricted diet carb consistent 1800 (7) COPD (chronic obstructive pulmonary disease): Qualifiers: COPD type: unspecified COPD Qualified Code(s): J44.9 - Chronic obstructive pulmonary disease, unspecified Code(s): J44.9 - Chronic obstructive pulmonary disease, unspecified Status: Acute Assessment and Plan: Breathing treatments (8) DM (diabetes mellitus): Code(s): E11.9 - Type 2 diabetes mellitus without complications Status: Acute Assessment and Plan: Holding metformin Insulin sliding scale as needed Subjective Date/time seen: 05/28/20 15:27 I feel much better Review of Systems Review of Systems: Narrative: Patient presented to emergency room due to shortness of breath Constitutional: Comments: No fevers no chills no rigors Cardiovascular: Comments: Not chest pain, bilateral lower extremity swelling and chronic ulcer Respiratory: Comments: Shortness of breath no cough or sputum production Gastrointestinal: Comments: No nausea no vomiting no abdominal pain increased abdominal girth Musculoskeletal: Comments: Bilateral lower extremity swelling Integumentary/Breasts: Comments: Bilateral lower extremity ulcers Neurologic: Comments: No sensorium other deficits Exam Narrative: Exam Narrative: Chronically ill-looking seeding in bed Const: General: comfortable, no acute distress, well developed, alert and awake Nutritional Appearance: other (Moderate obesity) Orientation/consciousness: patient oriented x3 HENMT: Head: normal to inspection, normocephalic and atraumatic Ears: hearing grossly normal bilaterally Face and sinus: normal facial exam Eyes: General: appearance normal, both eyes and all related structures Pupils: Equal, round and reactive pupils present EOM: EOMs intact bilaterally Neck: Neck: full ROM, no lymphadenopathy and no JVD Thyroid: thyroid normal Lymphatic: no lymphadenopathy noted Resp: Effort & Inspection: normal respiratory effort and able to speak in complete sentences Auscultation: clear to auscultation bilaterally Cardio: Jugular venous distension: no JVD Rate: regular rate Rhythm: regular rhythm Heart sounds: S1 normal heart sound present and S2 normal heart sound present GI: GI Palp: Yes Soft to palpation and Yes No hepatosplenomegaly present : General: Yes deferred Skin: Rashes: no rashes Wounds: wounds noted (Bilateral lower extremity ulcers) Neuro: General: patient oriented x3 and CN's II-XI
[2020-05-28 17:43] LABS: Glucose Point of Care 82 (65-105)
[2020-05-28 20:18] LABS: Glucose Point of Care 57 (65-105)
[2020-05-28] MEDS: GLUCOSE ORAL GEL 15 GM OF GLUCSE IN 37.5 GM TUBE PO (20:19)
[2020-05-28 20:48] LABS: Glucose Point of Care 132 (65-105)
[2020-05-28] MEDS: LORATADINE 10 MG TABLET PO (21:16)
[2020-05-28] MEDS: FLUTICASONE PROPIONATE 0.05% NA SPR 16 GM BTL (*BKC) 1 SPRAY NASAL (21:17)
[2020-05-28] MEDS: ALBUTEROL SULFATE (*SP) AEROSOL 1 PUFF 2 PUFF INHALATION (21:43)
[2020-05-29] VITALS (18 sets, daily range): BP systolic 115–152; BP diastolic 58–115; PULSE 49–102; RESP 16–24; TEMP 35.8–36.7; O2SAT 95–99
[2020-05-29] MEDS: HYDROcodone/acetaminophen (*CRX) 10-325 MG TABLET 1 TAB PO ×2 (04:23→14:54)
[2020-05-29 08:24] LABS: Glucose Point of Care 143 (65-105)
[2020-05-29] MEDS: TAMSULOSIN HCL 0.4 MG CAPSULE PO (08:37)
[2020-05-29] MEDS: AMIODARONE HCL 200 MG TABLET 400 MG PO (08:37)
[2020-05-29] MEDS: RIVAROXABAN 20 MG TABLET PO (08:37)
[2020-05-29] MEDS: carvediloL 12.5 MG TABLET PO ×2 (08:37→20:47)
[2020-05-29] MEDS: hydroCHLOROthiazide 25 MG TABLET PO (08:37)
[2020-05-29] MEDS: buPROPion HCL XL (24 HR) 150 MG TABCR 300 MG PO (08:37)
[2020-05-29] MEDS: SIMVASTATIN 20 MG TABLET 40 MG PO (08:37)
[2020-05-29] MEDS: LOSARTAN POTASSIUM 100 MG TABLET PO (08:37)
[2020-05-29] MEDS: FUROSEMIDE INJ 40 MG/4 ML VIAL IV PUSH ×2 (08:39→20:47)
[2020-05-29] MEDS: FLUTICASONE PROPIONATE 0.05% NA SPR 16 GM BTL (*BKC) 1 SPRAY NASAL ×2 (08:39→20:47)
[2020-05-29] MEDS: ALBUTEROL SULFATE (*SP) AEROSOL 1 PUFF 2 PUFF INHALATION ×2 (08:46→20:47)
--- NOTE | 2020-05-29 10:12 | PM.CNPUL ---
Assessment and Plan Assessment and plan (1) Lung nodule: Code(s): R91.1 - Solitary pulmonary nodule Status: Acute Assessment and Plan: Patient had a high-resolution CT scan of the chest on 01/11/2016 which demonstrated a 4 mm nodule in the right upper lobe. Of note there was no evidence of emphysema or interstitial lung disease at the time. Patient was going to have a follow-up CT scan but this is not been done. Patient also is noted to have restriction on his PFTs and I will order CT scan of the chest on 05/31/2020 to assess for A change in the nodule and for interstitial lung disease. (2) Acute on chronic respiratory failure with hypercapnia: Code(s): J96.22 - Acute and chronic respiratory failure with hypercapnia Status: Acute Assessment and Plan: patient presents with acute on chronic respiratory failure with hypercarbia. Etiology of this is COPD. In the emergency room the patient had a blood gas on 3 L nasal cannula which showed a pH of 7.28/89/176. The oxygen was decreased to 1.5 L and a repeat blood gas was pH 7.36/76/58. Patient was admitted to the floor with fluid overload and was treated with IV Lasix. Approximately 6 hours later patient was placed on BiPAP 25/10 at 25% FiO2 with a blood gas of 7.42/67/77. patient is unable to tolerate BiPAP 25/10 at this time because he states that it is uncomfortable and gives him too much pressure. 05/[address] the patient is on AVAPS mode tonight with RR 14, TV 500, Epap 10, I PAP min 11, I pap max 25, FIO2 25%. I will check ABG inmorning to assess ventilation. At this time I agree with continuing patient on a long-acting beta agonist, long-acting muscarinic antagonist and inhaled corticosteroid. I will switch him to inhaled trelegy 1 puff q.day. Patient with chronic respiratory failure from COPD resulting in a high PaCO2 and an elevated serum bicarb of greater than 40. Patient tried and failed BiPAP because he could not tolerate this mode of ventilation. I believe patient needs noninvasive ventilation because of his severe hypercarbia to prevent further hospitalizations. I have initiated the process for a AVAPS-AE with his home health company of [employer]. (3) Lower extremity edema: Code(s): R60.0 - Localized edema Status: Acute Assessment and Plan: 05/29 Patient presents with total body fluid overloaded is being diuresed with Lasix 40 IV b.i.d.. Patient has diuresed 3.8 L since admission and his weight has decreased from 160.7 to 156.1. Patient states that the edema has improved. History of Present Illness History of Present Illness Consult date: 05/29/20 Requesting physician: Rg Diaz MD Reason for consult: COPD Chief complaint: acute on chronic respiratory failure, CHF, edema Narrative: This is a new consult for COPD and hypercarbic respiratory failure. 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 Patient is followed in the pulmonary clinic and was last seen with a virtual visit on 02/14/2020 due to the pandemic. At that time patient was continued on Symbicort 164.5 2 puffs b.i.d., Spiriva Spiriva 18 mics q.day and rescue albuterol neb and ProAir. Patient presented on 5 L oxygen at that time and his sats were 98% he was instructed not to get turn his oxygen up because this could cause additional problems in the future. Patient was on a CPAP 17 and his download showed excellent compliance with an average use of 4.5 hours per night and an AHI of 0.7. He required no oxygen at night per his sleep study on 09/07/2016. patient had a 4 mm right upper nodule on CT scan 01/11/2016 and was posed to have follow-up CT scan in a year but this was never performed. Patient did not want to get a CT scan in and because h
[2020-05-29 10:25] LABS: Basophils Percent Auto 0.3 % (0.2-1.2); Eosinophils Absolute Auto 0.1 K/mm3 (0-0.3); Eosinophils Percent Auto 0.7 % (0-4.4); Hematocrit 36.9 % (42.0-52.0); Hemoglobin 11.3 g/dL (14.0-18.0); Immature Granulocyte Absolute 0.05 K/mm3 (0.00-0.031); Immature Granulocyte Percent A 0.7 % (0-0.5); Lymphocytes Percent Auto 11.6 % (18.3-44.2); Mean Corpuscular HGB Conc 30.6 g/dl (32-36); Mean Corpuscular Hemoglobin 29.9 pg (26-34); Mean Corpuscular Volume 97.6 fl (80-100); Monocytes Absolute Auto 0.8 K/mm3 (0.1-0.6); Monocytes Percent Auto 11.3 % (2.6-8.5); Neutrophils Absolute Auto 5.2 K/mm3 (1.3-6.7); Neutrophils Percent Auto 75.4 % (45.5-73.1); Platelet Count Result 161 k/mm3 (150-375); Red Blood Count 3.78 M/mm3 (4.6-6.20); Red Cell Distribution Width 14.4 % (11.5-14.5); White Blood Count 6.9 K/mm3 (4.5-10.0)
[2020-05-29 10:34] LABS: Blood Urea Nitrogen 37 mg/dL (9-20); Calcium 8.7 mg/dL (8.4-10.2); Carbon Dioxide > 40 mmol/L (22-30); Chloride 88 mmol/L (98-107); Estimated CRCL calculation 77 ml/min; Estimated Glomerular Filt Rate > 60; Glucose 297 mg/dL (75-110); Potassium 4.3 mmol/L (3.4-5.0); Sodium 136 mmol/L (137-145)
--- NOTE | 2020-05-29 11:05 | PCRCNOTE ---
[facility] arrangements being made with [facility] Patient.
[2020-05-29 12:21] LABS: Glucose Point of Care 288 (65-105)
[2020-05-29] MEDS: INSULIN ASPART (*BKC) 100 UNITS/ML SUB-Q (12:57)
[2020-05-29] MEDS: INSULIN ASPART (*BKC) 100 UNITS/ML 50 UNITS SUB-Q (12:59)
[2020-05-29] MEDS: TOLNAFTATE 1% POWDER 45 GM BTL 1 APPLIC TOPICAL ×2 (13:01→20:47)
[2020-05-29] MEDS: SILVERGEL (ELTA) 45 ML 1 APPLIC TOPICAL (13:03)
--- NOTE | 2020-05-29 15:37 | PM.IMPN ---
Progress Note: A&P Assessment and Plan (1) Acute on chronic respiratory failure with hypercapnia: Code(s): J96.22 - Acute and chronic respiratory failure with hypercapnia Status: Acute Assessment and Plan: patient on breathing treatments improved wearing BiPAP at nighttime appreciate pulmonology note follow pulmonology recommendation AVRICKEY heard (2) Morbid obesity with BMI of 50.0-59.9, adult: Code(s): E66.01 - Morbid (severe) obesity due to excess calories; Z68.43 - Body mass index [BMI] 50.0-59.9, adult Status: Acute Assessment and Plan: 1800 calorie restricted lifestyle and diet modifications (3) NILE (obstructive sleep apnea): Code(s): G47.33 - Obstructive sleep apnea (adult) (pediatric) Status: Acute Assessment and Plan: patient has not been wearing his CPAP at his setting is 17 (4) Lung nodule: Code(s): R91.1 - Solitary pulmonary nodule Status: Acute Assessment and Plan: will obtain CT to reassess nodule (5) COPD (chronic obstructive pulmonary disease): Qualifiers: COPD type: unspecified COPD Qualified Code(s): J44.9 - Chronic obstructive pulmonary disease, unspecified Code(s): J44.9 - Chronic obstructive pulmonary disease, unspecified Status: Acute Assessment and Plan: continue breathing treatments improved (6) DM (diabetes mellitus): Code(s): E11.9 - Type 2 diabetes mellitus without complications Status: Acute Assessment and Plan: insulin sliding scale as needed Accu-Cheks AC and HS (7) Diastolic CHF: Code(s): I50.30 - Unspecified diastolic (congestive) heart failure Status: Inactive Assessment and Plan: currently diuresing improved Strict i/o's Subjective Date/time seen: 05/29/20 15:37 I feel much better Review of Systems Review of Systems: Narrative: no new issues overnight Constitutional: Comments: no chills no rigors no fevers Cardiovascular: Comments: orthopnea patient has been sleeping on his recliner Respiratory: Comments: worsening shortness of breath Gastrointestinal: Comments: no nausea no vomiting no diarrhea no abdominal pain Musculoskeletal: Comments: bilateral lower extremity edema and wounds Integumentary/Breasts: Comments: bilateral lower extremity ulcers Neurologic: Comments: no sensorimotor deficit Exam Narrative: Exam Narrative: sitting in the chair Const: General: comfortable, no acute distress, alert, awake and other ( chronically ill looking) Nutritional Appearance: average body habitus and other ( morbidly obese) Orientation/consciousness: patient oriented x3 HENMT: Head: normal to inspection, normocephalic and atraumatic Ears: hearing grossly normal bilaterally Face and sinus: normal facial exam Eyes: General: appearance normal, both eyes and all related structures Pupils: Equal, round and reactive pupils present EOM: EOMs intact bilaterally Neck: Neck: full ROM, no lymphadenopathy and no JVD Thyroid: thyroid normal Lymphatic: no lymphadenopathy noted Resp: Effort & Inspection: normal respiratory effort and able to speak in complete sentences Auscultation: clear to auscultation bilaterally Cardio: Jugular venous distension: no JVD Rate: regular rate Rhythm: regular rhythm Heart sounds: S1 normal heart sound present and S2 normal heart sound present GI: GI Palp: Yes Soft to palpation and Yes No hepatosplenomegaly present : General: Yes deferred Skin: Rashes: no rashes Wounds: wounds noted ( bilateral lower extremity ulcers) Neuro: General: patient oriented x3 and CN's II-XI intact bilaterally Cranial nerves: Yes CN's II-XII intact bilaterally and Yes Equal, round and reactive pupils present Cognition (Neuro): normal cognition Speech: normal speech Gait exam (Neuro): Normal gait present Motor exam (neuro): 5/5 motor strength present throughout Extrem: General: nor
[2020-05-29 16:06] LABS: Glucose Point of Care 127 (65-105)
[2020-05-29 16:32] LABS: Glucose Point of Care 38 (65-105)
[2020-05-29] MEDS: GLUCOSE ORAL GEL 15 GM OF GLUCSE IN 37.5 GM TUBE PO ×2 (16:34→17:10)
[2020-05-29 17:00] LABS: Glucose Point of Care 45 (65-105)
[2020-05-29] MEDS: FLUTICASONE/UMECLIDIN/VILANTER 100-62.5-25 MCG ELLIPTA 1 PUFF INHALATION (17:12)
[2020-05-29 17:40] LABS: Glucose Point of Care 74 (65-105)
[2020-05-29] MEDS: LORATADINE 10 MG TABLET PO (20:47)
[2020-05-29 20:54] LABS: Glucose Point of Care 144 (65-105)
[2020-05-30] VITALS (10 sets, daily range): BP systolic 123–133; BP diastolic 51–71; PULSE 60–75; RESP 12–22; TEMP 36.3–36.7; O2SAT 97–100
[2020-05-30] MEDS: HYDROcodone/acetaminophen (*CRX) 10-325 MG TABLET 1 TAB PO ×3 (00:08→16:53)
[2020-05-30] MEDS: SILVERGEL (ELTA) 45 ML 1 APPLIC TOPICAL (04:46)
[2020-05-30 05:54] LABS: Alveolar/Arterial O2 Gradient 54.6 mmHg; Base Excess ABG 16.8 mEq/l (+/-2.0); Fractional Inspired Oxygen 32 %; HCO3 ABG 44.2 mEq/l (22.0-26.0); Oxygen Content ABG 16.8 %vol (16.0-22.0); Oxygen Saturation ABG 97.2 % (95.0-100.0); Oxyhemoglobin 96.3 % THb (90.0-100.0); PO2 ABG 94.7 mmHg (80.0-100.0); PO2 FiO2 Ratio Arterial Blood 2.96 %; Total Hemoglobin 12.3 g/dL (12.0-18.0); pH ABG 7.435 (7.350-7.450)
[2020-05-30 05:57] LABS: Device NASAL CANNULA; Modified Allen's Test Pass; PCO2 ABG 67.4 mmHg (35.0-45.0); Site Drawn LEFT RADIAL
[2020-05-30 08:06] LABS: Glucose Point of Care 210 (65-105)
--- NOTE | 2020-05-30 08:18 | PM.PNPUL ---
Progress Note: A&P Assessment and Plan (1) Lung nodule: Code(s): R91.1 - Solitary pulmonary nodule Status: Acute Assessment and Plan: Patient had a high-resolution CT scan of the chest on 01/11/2016 which demonstrated a 4 mm nodule in the right upper lobe. Of note there was no evidence of emphysema or interstitial lung disease at the time. Patient was going to have a follow-up CT scan but this is not been done. Patient also is noted to have restriction on his PFTs and I will order CT scan of the chest on 05/30 to assess for a change in the nodule and for interstitial lung disease. (2) Acute on chronic respiratory failure with hypercapnia: Code(s): J96.22 - Acute and chronic respiratory failure with hypercapnia Status: Acute Assessment and Plan: patient presents with acute on chronic respiratory failure with hypercarbia. Etiology of this is COPD. In the emergency room the patient had a blood gas on 3 L nasal cannula which showed a pH of 7.28/89/176. The oxygen was decreased to 1.5 L and a repeat blood gas was pH 7.36/76/58. Patient was admitted to the floor with fluid overload and was treated with IV Lasix. Approximately 6 hours later patient was placed on BiPAP 25/10 at 25% FiO2 with a blood gas of 7.42/67/77. patient is unable to tolerate BiPAP 25/10 at this time because he states that it is uncomfortable and gives him too much pressure. 05/[address] the patient is on AVAPS mode tonight with RR 14, TV 500, Epap 10, I PAP min 11, I pap max 25, FIO2 25%. I will check ABG inmorning to assess ventilation. At this time I agree with continuing patient on a long-acting beta agonist, long-acting muscarinic antagonist and inhaled corticosteroid. I will switch him to inhaled trelegy 1 puff q.day. Patient with chronic respiratory failure from COPD resulting in a high PaCO2 and an elevated serum bicarb of greater than 40. Patient tried and failed BiPAP because he could not tolerate this mode of ventilation. I believe patient needs noninvasive ventilation because of his severe hypercarbia to prevent further hospitalizations. I have initiated the process for a AVAPS-AE with his home health company of [employer]. 05/30 Wore home AVAPS-AE unit with 2 L bleed in with sats 97%. He said machine was comfortable and tolerated it well. ABG 30-60 minutes off AVAPS-AER on 3 L NC was 7.44/67/95. Continue current setting with 1 L bleed in and check ABG prior to removal of AVAPS-AE and will check overnight oximetry on 1 L bleed in. (3) Lower extremity edema: Code(s): R60.0 - Localized edema Status: Acute Assessment and Plan: 05/29 Patient presents with total body fluid overloaded is being diuresed with Lasix 40 IV b.i.d.. Patient has diuresed 3.8 L since admission and his weight has decreased from 160.7 to 156.1. Patient states that the edema has improved. 05/30 Total minus 8.7L with lasix and abdomen and legs less tense. Subjective Date/time seen: 05/30/20 08:18 Interval history: This is a 64-year-old man with a history of atrial fibrillation on Xarelto, COPD on home oxygen, obstructive sleep apnea on CPAP 17, congestive heart failure with fluid retention and common variable immunodeficiency currently not treated. Patient is followed in the pulmonary clinic and was last seen with a virtual visit on 02/14/2020 due to the pandemic. At that time patient was continued on Symbicort 164.5 2 puffs b.i.d., Spiriva Spiriva 18 mics q.day and rescue albuterol neb and ProAir. Patient presented on 5 L oxygen at that time and his sats were 98% he was instructed not to get turn his oxygen up because this could cause additional problems in the future. Patient was on a CPAP 17 and his download showed excellent compliance with an average use of 4.5 hours per night and an AHI of 0.7. He required no oxygen at night per his sleep study on 09/07/2016. patient had a 4 mm right upper nodule on CT scan 11
[2020-05-30] MEDS: LOSARTAN POTASSIUM 100 MG TABLET PO (08:24)
[2020-05-30] MEDS: SIMVASTATIN 20 MG TABLET 40 MG PO (08:24)
[2020-05-30] MEDS: AMIODARONE HCL 200 MG TABLET 400 MG PO (08:24)
[2020-05-30] MEDS: FLUTICASONE PROPIONATE 0.05% NA SPR 16 GM BTL (*BKC) 1 SPRAY NASAL ×2 (08:24→20:38)
[2020-05-30] MEDS: carvediloL 12.5 MG TABLET PO ×2 (08:25→20:36)
[2020-05-30] MEDS: buPROPion HCL XL (24 HR) 150 MG TABCR 300 MG PO (08:25)
[2020-05-30] MEDS: RIVAROXABAN 20 MG TABLET PO (08:25)
[2020-05-30] MEDS: hydroCHLOROthiazide 25 MG TABLET PO (08:25)
[2020-05-30] MEDS: FUROSEMIDE INJ 40 MG/4 ML VIAL IV PUSH ×2 (08:26→20:38)
[2020-05-30] MEDS: TOLNAFTATE 1% POWDER 45 GM BTL 1 APPLIC TOPICAL ×2 (08:26→20:44)
[2020-05-30] MEDS: TAMSULOSIN HCL 0.4 MG CAPSULE PO (08:26)
[2020-05-30] MEDS: INSULIN ASPART (*BKC) 100 UNITS/ML SUB-Q ×3 (08:30→18:33)
[2020-05-30] MEDS: FLUTICASONE/UMECLIDIN/VILANTER 100-62.5-25 MCG ELLIPTA 1 PUFF INHALATION (08:31)
[2020-05-30 12:16] LABS: Glucose Point of Care 253 (65-105)
--- NOTE | 2020-05-30 14:59 | PM.IMPN ---
Progress Note: A&P Assessment and Plan (1) Acute on chronic respiratory failure with hypercapnia: Code(s): J96.22 - Acute and chronic respiratory failure with hypercapnia Status: Acute Assessment and Plan: Patient had not been using his CPAP at He has been placed on CPAP at nighttime Repeat ABG showed much improvement Continue CPAP at night Appreciate pulmonology note (2) CHF exacerbation: Code(s): I50.9 - Heart failure, unspecified Status: Acute Assessment and Plan: BNP is only slightly Will l diurese gently (3) Morbid obesity with BMI of 50.0-59.9, adult: Code(s): E66.01 - Morbid (severe) obesity due to excess calories; Z68.43 - Body mass index [BMI] 50.0-59.9, adult Status: Acute Assessment and Plan: Lifestyle and diet modifications (4) NILE (obstructive sleep apnea): Code(s): G47.33 - Obstructive sleep apnea (adult) (pediatric) Status: Acute Assessment and Plan: Continue CPAP (5) Lung nodule: Code(s): R91.1 - Solitary pulmonary nodule Status: Acute Assessment and Plan: Repeat CT of the chest shows no nodules (6) COPD (chronic obstructive pulmonary disease): Qualifiers: COPD type: unspecified COPD Qualified Code(s): J44.9 - Chronic obstructive pulmonary disease, unspecified Code(s): J44.9 - Chronic obstructive pulmonary disease, unspecified Status: Acute Assessment and Plan: Continue breathing treatments Improved (7) Lower extremity edema: Code(s): R60.0 - Localized edema Status: Acute Assessment and Plan: Some improvement (8) DM (diabetes mellitus): Code(s): E11.9 - Type 2 diabetes mellitus without complications Status: Acute Assessment and Plan: Insulin sliding scale as needed Accu-Cheks AC and HS Subjective Date/time seen: 05/30/20 I feel much better Review of Systems Review of Systems: Narrative: Patient states that he feels much better was able to sleep well Constitutional: Comments: No fevers no rigors no chills Cardiovascular: Comments: Leg swelling, orthopnea Respiratory: Comments: No cough or sputum production Gastrointestinal: Comments: No nausea no vomiting no abdominal pain Musculoskeletal: Comments: Bilateral lower extremity swelling Integumentary/Breasts: Comments: No rash Neurologic: Comments: No sensorimotor deficit Exam Narrative: Exam Narrative: Sitting in chair Const: General: comfortable, no acute distress, well developed, alert, awake and other (Clinically ill looking) Nutritional Appearance: other (Morbid obesity) Orientation/consciousness: patient oriented x3 HENMT: Head: normal to inspection, normocephalic and atraumatic Ears: hearing grossly normal bilaterally Face and sinus: normal facial exam Eyes: General: appearance normal, both eyes and all related structures Pupils: Equal, round and reactive pupils present EOM: EOMs intact bilaterally Neck: Neck: full ROM, no lymphadenopathy and no JVD Thyroid: thyroid normal Lymphatic: no lymphadenopathy noted Resp: Effort & Inspection: normal respiratory effort and able to speak in complete sentences Auscultation: clear to auscultation bilaterally Cardio: Jugular venous distension: no JVD Rate: regular rate Rhythm: regular rhythm Heart sounds: S1 normal heart sound present and S2 normal heart sound present GI: GI Palp: Yes Soft to palpation and Yes No hepatosplenomegaly present : General: Yes deferred Skin: Rashes: no rashes Wounds: no wounds Neuro: General: patient oriented x3 and CN's II-XI intact bilaterally Cranial nerves: Yes CN's II-XII intact bilaterally and Yes Equal, round and reactive pupils present Cognition (Neuro): normal cognition Speech: normal speech Gait exam (Neuro): Normal gait present Motor exam (neuro): 5/5 motor strength present throughout Extrem: General: normal to inspection, full ROM, no joint enlargement and e
--- NOTE | 2020-05-30 15:19 | PCPTNOTE ---
Patient refused treatment this session due to painful wound on buttock region. Patient reports he does not want to move around at this time.
[2020-05-30 16:45] LABS: Glucose Point of Care 325 (65-105)
[2020-05-30] MEDS: INSULIN HUMAN NPH (*BKC) 100 UNITS/ML 40 UNITS SUB-Q (18:34)
[2020-05-30] MEDS: LORATADINE 10 MG TABLET PO (20:38)
[2020-05-30 22:21] LABS: Glucose Point of Care 329 (65-105)
[2020-05-31] VITALS (16 sets, daily range): BP systolic 95–142; BP diastolic 70–75; PULSE 59–86; RESP 16–22; TEMP 36.2–36.8; O2SAT 90–99
[2020-05-31] MEDS: HYDROcodone/acetaminophen (*CRX) 10-325 MG TABLET 1 TAB PO ×3 (00:45→17:28)
--- NOTE | 2020-05-31 06:04 | PCRCNOTE ---
PT WAS NOT PLACED ON HOME TRILOGY WITH 1LPM OXYGEN BLEED IN AND [facility] LINK UNTIL 49 DUE TO PT DISCOMFORT AND NEED FOR PAIN MEDICATION. [facility] LINK DOWNLOAD SHOWS NO DATA RECORDED. FIONA MIRANDA RN NOTIFIED.
[2020-05-31 06:05] LABS: Alveolar/Arterial O2 Gradient 54.2 mmHg; Base Excess ABG 10.1 mEq/l (+/-2.0); Device OTHER DEVICE; Fractional Inspired Oxygen 24 %; HCO3 ABG 35.1 mEq/l (22.0-26.0); Modified Allen's Test Pass; Oxygen Content ABG 17.4 %vol (16.0-22.0); Oxyhemoglobin 91.3 % THb (90.0-100.0); PCO2 ABG 48.5 mmHg (35.0-45.0); PO2 ABG 59.2 mmHg (80.0-100.0); PO2 FiO2 Ratio Arterial Blood 2.47 %; Site Drawn LEFT RADIAL; Total Hemoglobin 13.6 g/dL (12.0-18.0); pH ABG 7.478 (7.350-7.450)
[2020-05-31] MEDS: INSULIN HUMAN NPH (*BKC) 100 UNITS/ML 40 UNITS SUB-Q ×2 (06:41→17:23)
[2020-05-31 06:44] LABS: Glucose Point of Care 243 (65-105)
[2020-05-31 07:51] LABS: Glucose Point of Care 225 (65-105)
[2020-05-31] MEDS: INSULIN ASPART (*BKC) 100 UNITS/ML SUB-Q ×3 (08:46→17:29)
[2020-05-31] MEDS: FLUTICASONE/UMECLIDIN/VILANTER 100-62.5-25 MCG ELLIPTA 1 PUFF INHALATION (08:46)
[2020-05-31] MEDS: FLUTICASONE PROPIONATE 0.05% NA SPR 16 GM BTL (*BKC) 1 SPRAY NASAL ×2 (08:51→21:40)
[2020-05-31] MEDS: SIMVASTATIN 20 MG TABLET 40 MG PO (08:52)
[2020-05-31] MEDS: TAMSULOSIN HCL 0.4 MG CAPSULE PO (08:55)
[2020-05-31] MEDS: LOSARTAN POTASSIUM 100 MG TABLET PO (08:55)
[2020-05-31] MEDS: carvediloL 12.5 MG TABLET PO ×2 (08:55→21:39)
[2020-05-31] MEDS: buPROPion HCL XL (24 HR) 150 MG TABCR 300 MG PO (08:55)
[2020-05-31] MEDS: RIVAROXABAN 20 MG TABLET PO (08:56)
[2020-05-31] MEDS: hydroCHLOROthiazide 25 MG TABLET PO (08:56)
[2020-05-31] MEDS: AMIODARONE HCL 200 MG TABLET 400 MG PO (08:56)
[2020-05-31] MEDS: FUROSEMIDE INJ 40 MG/4 ML VIAL IV PUSH ×2 (08:57→21:40)
--- NOTE | 2020-05-31 10:00 | PM.PNPUL ---
Progress Note: A&P Assessment and Plan (1) Lung nodule: Code(s): R91.1 - Solitary pulmonary nodule Status: Acute Assessment and Plan: Patient had a high-resolution CT scan of the chest on 01/11/2016 which demonstrated a 4 mm nodule in the right upper lobe. Of note there was no evidence of emphysema or interstitial lung disease at the time. Patient was going to have a follow-up CT scan but this is not been done. Patient also is noted to have restriction on his PFTs and I will order CT scan of the chest on 05/30 to assess for a change in the nodule and for interstitial lung disease. 05/31 CT scan with improved RUL 4 mm nodule that is now punctate. (2) Acute on chronic respiratory failure with hypercapnia: Code(s): J96.22 - Acute and chronic respiratory failure with hypercapnia Status: Acute Assessment and Plan: patient presents with acute on chronic respiratory failure with hypercarbia. Etiology of this is COPD. In the emergency room the patient had a blood gas on 3 L nasal cannula which showed a pH of 7.28/89/176. The oxygen was decreased to 1.5 L and a repeat blood gas was pH 7.36/76/58. Patient was admitted to the floor with fluid overload and was treated with IV Lasix. Approximately 6 hours later patient was placed on BiPAP 25/10 at 25% FiO2 with a blood gas of 7.42/67/77. patient is unable to tolerate BiPAP 25/10 at this time because he states that it is uncomfortable and gives him too much pressure. 05/[address] the patient is on AVAPS mode tonight with RR 14, TV 500, Epap 10, I PAP min 11, I pap max 25, FIO2 25%. I will check ABG inmorning to assess ventilation. At this time I agree with continuing patient on a long-acting beta agonist, long-acting muscarinic antagonist and inhaled corticosteroid. I will switch him to inhaled trelegy 1 puff q.day. Patient with chronic respiratory failure from COPD resulting in a high PaCO2 and an elevated serum bicarb of greater than 40. Patient tried and failed BiPAP because he could not tolerate this mode of ventilation. I believe patient needs noninvasive ventilation because of his severe hypercarbia to prevent further hospitalizations. I have initiated the process for a AVAPS-AE with his home health company of [employer]. 05/30 Wore home AVAPS-AE unit with 2 L bleed in with sats 97%. He said machine was comfortable and tolerated it well. ABG 30-60 minutes off AVAPS-AER on 3 L NC was 7.44/67/95. Continue current setting with 1 L bleed in and check ABG prior to removal of AVAPS-AE and will check overnight oximetry on 1 L bleed in. 05/31 05/31 Improved, breathing at rest is at baseline. Wore home AVAPS-AE unit (RR auto, TV 500, E min 5, E max 20, PS min 5, PS max 20, max pressure 25, AVAPS rate 5) with 2 L bleed in with sats 97% then turned to 1 Liter bleed in with sats 93%. ABG at end of night 7.48/49/59. He said machine was comfortable and tolerated it well. Will do apnea link tonight on 2 L bleed in. (3) Lower extremity edema: Code(s): R60.0 - Localized edema Status: Acute Assessment and Plan: 05/29 Patient presents with total body fluid overloaded is being diuresed with Lasix 40 IV b.i.d.. Patient has diuresed 3.8 L since admission and his weight has decreased from 160.7 to 156.1. Patient states that the edema has improved. 05/30 Total minus 8.7L with lasix and abdomen and legs less tense. 05/31 Total minus 11.690 L with lasix and abdomen and legs less tense. Subjective Date/time seen: 05/31/20 10:00 Interval history: This is a 64-year-old man with a history of atrial fibrillation on Xarelto, COPD on home oxygen 3.5-4.0 liters, obstructive sleep apnea on CPAP 17 with RA, congestive heart failure with fluid retention and common variable immunodeficiency currently not treated. Patient is followed in the pulmonary clinic and was last seen with a virtual visit on 02/14/2020 due to the pandemic. At that time patient was
[2020-05-31 12:46] LABS: Glucose Point of Care 249 (65-105)
--- NOTE | 2020-05-31 16:43 | PM.IMPN ---
Progress Note: A&P Assessment and Plan (1) Acute on chronic respiratory failure with hypercapnia: Code(s): J96.22 - Acute and chronic respiratory failure with hypercapnia Status: Acute Assessment and Plan: improved the patient had not been using his CPAP at home patient currently on AVAPS tolerating well appreciate pulmonology note (2) Morbid obesity with BMI of 50.0-59.9, adult: Code(s): E66.01 - Morbid (severe) obesity due to excess calories; Z68.43 - Body mass index [BMI] 50.0-59.9, adult Status: Acute Assessment and Plan: lifestyle and diet modifications 1800 calorie restricted diet carb consistent (3) NILE (obstructive sleep apnea): Code(s): G47.33 - Obstructive sleep apnea (adult) (pediatric) Status: Acute Assessment and Plan: on AVAPS improved (4) COPD (chronic obstructive pulmonary disease): Qualifiers: COPD type: unspecified COPD Qualified Code(s): J44.9 - Chronic obstructive pulmonary disease, unspecified Code(s): J44.9 - Chronic obstructive pulmonary disease, unspecified Status: Acute Assessment and Plan: on breathing treatments On inhaled steroids as well Not actively wheezing (5) Lung nodule: Code(s): R91.1 - Solitary pulmonary nodule Status: Acute Assessment and Plan: On repeat CT high-resolution of lung it has become punctate (6) Lower extremity edema: Code(s): R60.0 - Localized edema Status: Acute Assessment and Plan: Likely a combination of peripheral venous insufficiency chronic lymphedema and right heart failure Compression stockings or Dawit wraps Subjective Date/time seen: 05/31/20 16:43 I feel much better Review of Systems Review of Systems: Narrative: patient is complaining of perineum wounds and bleeding overnight from friction while transferring from bed to chair Constitutional: Comments: no rigors no chills no fever Cardiovascular: Comments: no chest pain Respiratory: Comments: shortness of breath Gastrointestinal: Comments: no nausea no vomiting no abdominal pain no diarrhea Musculoskeletal: Comments: bilateral lower extremity ulcers Integumentary/Breasts: Comments: ulcers of bilateral lower extremities Neurologic: Comments: no sensorimotor deficit Exam Narrative: Exam Narrative: sitting by the edge of the bed Const: General: comfortable, no acute distress, well developed, alert and awake Nutritional Appearance: other ( morbid obesity) Orientation/consciousness: patient oriented x3 HENMT: Head: normal to inspection, normocephalic and atraumatic Ears: hearing grossly normal bilaterally Face and sinus: normal facial exam Eyes: General: appearance normal, both eyes and all related structures Pupils: Equal, round and reactive pupils present EOM: EOMs intact bilaterally Neck: Neck: full ROM, no lymphadenopathy and no JVD Thyroid: thyroid normal Lymphatic: no lymphadenopathy noted Resp: Effort & Inspection: normal respiratory effort and able to speak in complete sentences Auscultation: clear to auscultation bilaterally Cardio: Jugular venous distension: no JVD Rate: regular rate Rhythm: regular rhythm Heart sounds: S1 normal heart sound present and S2 normal heart sound present GI: GI Palp: Yes Soft to palpation and Yes No hepatosplenomegaly present : General: Yes deferred Skin: Rashes: no rashes Wounds: no wounds Neuro: General: patient oriented x3 and CN's II-XI intact bilaterally Cranial nerves: Yes CN's II-XII intact bilaterally and Yes Equal, round and reactive pupils present Cognition (Neuro): normal cognition Speech: normal speech Gait exam (Neuro): Normal gait present Motor exam (neuro): 5/5 motor strength present throughout Extrem: General: normal to inspection, full ROM, no joint enlargement and no pedal edema Objective Data Vital Signs Vital Signs: Vital Signs - 24 hr 05/30/20 20:00 05/30/20 20
[2020-05-31 16:49] LABS: Glucose Point of Care 291 (65-105)
[2020-05-31] MEDS: TOLNAFTATE 1% POWDER 45 GM BTL 1 APPLIC TOPICAL ×2 (16:52→21:40)
[2020-05-31] MEDS: SILVERGEL (ELTA) 45 ML 1 APPLIC TOPICAL (16:52)
[2020-05-31] MEDS: polyethylene glycoL 3350 17 GM POWD.PACK PO (17:29)
[2020-05-31] MEDS: LORATADINE 10 MG TABLET PO (21:40)
[2020-05-31 21:52] LABS: Glucose Point of Care 357 (65-105)
[2020-05-31] MEDS: INSULIN ASPART (*BKC) 100 UNITS/ML 8 UNITS SUB-Q (22:09)
[2020-06-01] VITALS (18 sets, daily range): BP systolic 111–125; BP diastolic 50–59; PULSE 58–101; RESP 20–21; TEMP 36.2–36.7; O2SAT 85–99
[2020-06-01] MEDS: HYDROcodone/acetaminophen (*CRX) 10-325 MG TABLET 1 TAB PO ×2 (01:04→09:33)
[2020-06-01 01:07] LABS: Glucose Point of Care 102 (65-105)
[2020-06-01 03:31] LABS: Glucose Point of Care 143 (65-105)
[2020-06-01] MEDS: INSULIN HUMAN NPH (*BKC) 100 UNITS/ML 40 UNITS SUB-Q (05:47)
[2020-06-01 05:54] LABS: Alveolar/Arterial O2 Gradient 64.6 mmHg; Carboxyhemoglobin 0.6 % THb (0-2.0); Device OTHER DEVICE; Fractional Inspired Oxygen 28 %; HCO3 ABG 34.1 mEq/l (22.0-26.0); Methemoglobin ABG 0.3 %THb (0-1.5); Modified Allen's Test Pass; Oxygen Content ABG 18.9 %vol (16.0-22.0); Oxygen Saturation ABG 94.7 % (95.0-100.0); Oxyhemoglobin 93.7 % THb (90.0-100.0); PCO2 ABG 53.1 mmHg (35.0-45.0); PO2 ABG 72.4 mmHg (80.0-100.0); PO2 FiO2 Ratio Arterial Blood 2.59 %; Reduced Hemoglobin 5.4 %THb (0-5.0); Site Drawn RIGHT RADIAL; Total Hemoglobin 14.3 g/dL (12.0-18.0); pH ABG 7.425 (7.350-7.450)
[2020-06-01 05:57] LABS: Glucose Point of Care 173 (65-105)
[2020-06-01 07:56] LABS: Glucose Point of Care 180 (65-105)
[2020-06-01 08:49] LABS: Basophils Percent Auto 0.3 % (0.2-1.2); Eosinophils Absolute Auto 0.2 K/mm3 (0-0.3); Hematocrit 37.6 % (42.0-52.0); Hemoglobin 11.9 g/dL (14.0-18.0); Immature Granulocyte Absolute 0.06 K/mm3 (0.00-0.031); Immature Granulocyte Percent A 0.8 % (0-0.5); Lymphocytes Absolute Auto 1.19 K/mm3 (0.9-3.2); Lymphocytes Percent Auto 15.5 % (18.3-44.2); Mean Corpuscular HGB Conc 31.6 g/dl (32-36); Mean Corpuscular Hemoglobin 29.9 pg (26-34); Mean Corpuscular Volume 94.5 fl (80-100); Mean Platelet Volume 11.6 fl (7.4-10.4); Monocytes Absolute Auto 0.7 K/mm3 (0.1-0.6); Monocytes Percent Auto 9.5 % (2.6-8.5); Neutrophils Absolute Auto 5.5 K/mm3 (1.3-6.7); Neutrophils Percent Auto 70.9 % (45.5-73.1); Platelet Count Result 179 k/mm3 (150-375); Red Blood Count 3.98 M/mm3 (4.6-6.20); Red Cell Distribution Width 14.1 % (11.5-14.5); White Blood Count 7.7 K/mm3 (4.5-10.0)
[2020-06-01] MEDS: AMIODARONE HCL 200 MG TABLET 400 MG PO (08:58)
[2020-06-01] MEDS: LOSARTAN POTASSIUM 100 MG TABLET PO (08:58)
[2020-06-01] MEDS: hydroCHLOROthiazide 25 MG TABLET PO (08:58)
[2020-06-01] MEDS: SIMVASTATIN 20 MG TABLET 40 MG PO (08:59)
[2020-06-01] MEDS: carvediloL 12.5 MG TABLET PO (08:59)
[2020-06-01] MEDS: FUROSEMIDE INJ 40 MG/4 ML VIAL IV PUSH (08:59)
[2020-06-01] MEDS: TAMSULOSIN HCL 0.4 MG CAPSULE PO (08:59)
[2020-06-01] MEDS: RIVAROXABAN 20 MG TABLET PO (08:59)
[2020-06-01] MEDS: FLUTICASONE PROPIONATE 0.05% NA SPR 16 GM BTL (*BKC) 1 SPRAY NASAL (08:59)
[2020-06-01] MEDS: buPROPion HCL XL (24 HR) 150 MG TABCR 300 MG PO (08:59)
[2020-06-01] MEDS: SILVERGEL (ELTA) 45 ML 1 APPLIC TOPICAL (09:00)
[2020-06-01] MEDS: TOLNAFTATE 1% POWDER 45 GM BTL 1 APPLIC TOPICAL (09:01)
[2020-06-01 09:18] LABS: Blood Urea Nitrogen 32 mg/dL (9-20); Calcium 8.6 mg/dL (8.4-10.2); Carbon Dioxide > 40 mmol/L (22-30); Chloride 89 mmol/L (98-107); Estimated CRCL calculation 84 ml/min; Estimated Glomerular Filt Rate > 60; Glucose 238 mg/dL (75-110); Potassium 4.1 mmol/L (3.4-5.0); Sodium 135 mmol/L (137-145)
--- NOTE | 2020-06-01 11:14 | PM.PNPUL ---
Progress Note: A&P Assessment and Plan (1) Lung nodule: Code(s): R91.1 - Solitary pulmonary nodule Status: Acute Assessment and Plan: Patient had a high-resolution CT scan of the chest on 01/11/2016 which demonstrated a 4 mm nodule in the right upper lobe. Of note there was no evidence of emphysema or interstitial lung disease at the time. Patient was going to have a follow-up CT scan but this is not been done. Patient also is noted to have restriction on his PFTs and I will order CT scan of the chest on 05/30 to assess for a change in the nodule and for interstitial lung disease. 05/31 CT scan with improved RUL 4 mm nodule that is now punctate. (2) Acute on chronic respiratory failure with hypercapnia: Code(s): J96.22 - Acute and chronic respiratory failure with hypercapnia Status: Acute Assessment and Plan: patient presents with acute on chronic respiratory failure with hypercarbia. Etiology of this is COPD. In the emergency room the patient had a blood gas on 3 L nasal cannula which showed a pH of 7.28/89/176. The oxygen was decreased to 1.5 L and a repeat blood gas was pH 7.36/76/58. Patient was admitted to the floor with fluid overload and was treated with IV Lasix. Approximately 6 hours later patient was placed on BiPAP 25/10 at 25% FiO2 with a blood gas of 7.42/67/77. patient is unable to tolerate BiPAP 25/10 at this time because he states that it is uncomfortable and gives him too much pressure. 05/[address] the patient is on AVAPS mode tonight with RR 14, TV 500, Epap 10, I PAP min 11, I pap max 25, FIO2 25%. I will check ABG inmorning to assess ventilation. At this time I agree with continuing patient on a long-acting beta agonist, long-acting muscarinic antagonist and inhaled corticosteroid. I will switch him to inhaled trelegy 1 puff q.day. Patient with chronic respiratory failure from COPD resulting in a high PaCO2 and an elevated serum bicarb of greater than 40. Patient tried and failed BiPAP because he could not tolerate this mode of ventilation. I believe patient needs noninvasive ventilation because of his severe hypercarbia to prevent further hospitalizations. I have initiated the process for a AVAPS-AE with his home health company of [employer]. 05/30 Wore home AVAPS-AE unit with 2 L bleed in with sats 97%. He said machine was comfortable and tolerated it well. ABG 30-60 minutes off AVAPS-AER on 3 L NC was 7.44/67/95. Continue current setting with 1 L bleed in and check ABG prior to removal of AVAPS-AE and will check overnight oximetry on 1 L bleed in. 05/31 05/31 Improved, breathing at rest is at baseline. Wore home AVAPS-AE unit (RR auto, TV 500, E min 5, E max 20, PS min 5, PS max 20, max pressure 25, AVAPS rate 5) with 2 L bleed in with sats 97% then turned to 1 Liter bleed in with sats 93%. ABG at end of night 7.48/49/59. He said machine was comfortable and tolerated it well. Will do apnea link tonight on 2 L bleed in. 06/01 Improved and ready for discharge today. Patient wore AVAPS units last night on the above settings with 2 L oxygen bleed in and had an overnight oximetry. Patient's average saturation was 96%. Lowest desaturation station was 86%. Saturations less than or equal to 88% was 2 minutes or 1% of the monitored time. Discharge on: AVAPS-AE unit (RR auto, TV 500, E min 5, E max 20, PS min 5, PS max 20, max pressure 25, AVAPS rate 5) with 2 L bleed Diuretic regimen per hospitalist Follow up i n pulmonary clinic in 2-3 weeks, I gave him our business card and will inform our planner scheduler. Discussed with Dr. Diaz. (3) Lower extremity edema: Code(s): R60.0 - Localized edema Status: Acute Assessment and Plan: 05/29 Patient presents with total body fluid overloaded is being diuresed with Lasix 40 IV b.i.d.. Patient has diuresed 3.8 L since admission and his weight has decreased from 160.7 to 156.1. Patient states that the edema has
[2020-06-01] MEDS: FLUTICASONE/UMECLIDIN/VILANTER 100-62.5-25 MCG ELLIPTA 1 PUFF INHALATION (11:57)
[2020-06-01 12:04] LABS: Glucose Point of Care 219 (65-105)
[2020-06-01] MEDS: INSULIN ASPART (*BKC) 100 UNITS/ML SUB-Q (12:22)
--- NOTE | 2020-06-01 13:58 | HOMEO2EVAL ---
Home Oxygen Evaluation RC: Home Oxygen (O2) Evaluation Start: 06/01/20 10:48 Freq: ONCE Status: Active Protocol: RPE Activity Type Activity Date Activity User E-Sign Co-Sign Detail Recorded Client Recorded Date Recorded By Document 06/01/20 11:30 [email or web address] 06/01/20 13:58 AMAURI Document 06/01/20 11:31 [email or web address] 06/01/20 13:58 AMAURI Document 06/01/20 11:32 AMAURI [email or web address] 06/01/20 13:58 AMAURI Document 06/01/20 11:35 AMAURI [email or web address] 06/01/20 13:58 AMAURI Document 06/01/20 11:36 AMAURI [email or web address] 06/01/20 13:58 AMAURI Document 06/01/20 11:38 AMAURI [email or web address] 06/01/20 13:58 AMAURI Document 06/01/20 11:45 AMAURI [email or web address] 06/01/20 13:58 AMAURI 06/01/20 06/01/20 06/01/20 11:30 11:31 11:32 Home O2 Evaluation Test Phase Resting Resting Resting Oxygen Delivery Room Air Nasal Cannula Nasal Cannula Oxygen Flow Rate (L/min) 1 2 Pulse Oximetry (90-100 %) 85 L 87 L 94 Pulse Rate (60-100 beats/min) 88 Home Oxygen Evaluation Comments Treatment Charges O2 Evaluation - Inpatient 06/01/20 06/01/20 06/01/20 11:35 11:36 11:38 Home O2 Evaluation Test Phase Exercise Exercise Exercise Oxygen Delivery Nasal Cannula Nasal Cannula Nasal Cannula Oxygen Flow Rate (L/min) 2 3 4 Pulse Oximetry (90-100 %) 87 L 87 L 93 Pulse Rate (60-100 beats/min) 101 H Home Oxygen Evaluation Comments Treatment Charges 06/01/20 11:45 Home O2 Evaluation Test Phase Resting Oxygen Delivery Nasal Cannula Oxygen Flow Rate (L/min) 2 Pulse Oximetry (90-100 %) 95 Pulse Rate (60-100 beats/min) 90 Home Oxygen Evaluation Comments Pt requires 2 L at rest and 4 L with activity Treatment Charges
--- NOTE | 2020-06-01 14:05 | PCRCNOTE ---
Home O2 eval completed. Home O2 at 2 at rest and $ with activity. Set up with [facility] and they will bring in tank for transport home.
--- NOTE | 2020-06-01 14:13 | PM.DS ---
DS: Admitting Diagnosis Admitting Diagnosis Admitting Diagnosis: (1) CHF exacerbation: (2) Acute on chronic respiratory failure with hypercapnia: (3) NILE (obstructive sleep apnea): DS: Discharge Diagnosis Discharge Diagnosis (1) Acute on chronic respiratory failure with hypercapnia: Code(s): J96.22 - Acute and chronic respiratory failure with hypercapnia Status: Acute Assessment and Plan: patient had not been wearing his CPAP for 30 days or so resolved patient was evaluated for home O2 and he is qualify for 2 L at rest and 4 L with activity (2) COPD (chronic obstructive pulmonary disease): Qualifiers: COPD type: unspecified COPD Qualified Code(s): J44.9 - Chronic obstructive pulmonary disease, unspecified Code(s): J44.9 - Chronic obstructive pulmonary disease, unspecified Status: Acute Assessment and Plan: improved a Spiriva has been discontinued Symbicort has been discontinued patient is started on Trelegy Ellipta (3) NILE (obstructive sleep apnea): Code(s): G47.33 - Obstructive sleep apnea (adult) (pediatric) Status: Acute Assessment and Plan: patient was started on AVAPS continue at home (4) On home O2: Code(s): Z99.81 - Dependence on supplemental oxygen Status: Acute Assessment and Plan: 2 L at rest and 4 L with activity (5) Lung nodule: Code(s): R91.1 - Solitary pulmonary nodule Status: Acute Assessment and Plan: on repeat CT has decreased in size to a punctate size (6) Lower extremity edema: Code(s): R60.0 - Localized edema Status: Acute Assessment and Plan: patient will be going home on Bumex Lasix has been discontinued follow-up in the outpatient setting (7) DM (diabetes mellitus): Code(s): E11.9 - Type 2 diabetes mellitus without complications Status: Acute Assessment and Plan: continue insulin (8) Morbid obesity with BMI of 50.0-59.9, adult: Code(s): E66.01 - Morbid (severe) obesity due to excess calories; Z68.43 - Body mass index [BMI] 50.0-59.9, adult Status: Acute Assessment and Plan: lifestyle and diet modifications DS: Summary Hospital Course Reason for hospitalization: shortness of breath Hospital Course: this is a 64-year-old male with past medical history significant for morbid obesity restrictive/obstructive pulmonary disease, type 2 diabetes mellitus insulin dependent, hypertension, right heart failure, bilateral lower extremity chronic lymphedema, bilateral lower extremity ulcers, Obstructive sleep apnea on CPAP. patient states that because of COVID last year he has had visually no follow-up and noticed that he was getting very short of breath and started is sleeping on his recliner but could not fit his CPAP machine and was not able to wear it for about 30 or so. Patient presented to the emergency room with worsening shortness of breath. Patient was initially admitted to IMU and was placed on diuretics, a Crum catheter was placed for accurate measurement of intake and output daily, breathing treatments, patient was also placed on BiPAP after he was found to have elevated CO2 on ABG drawn in the emergency room. Patient then was transitioned to CPAP machine. a consult was obtained with Pulmonary and some changes were made to his breathing treatment and he was started on AVAPS. patient participated with PT OT in therapy sessions WOUND CARE FOLLOW-UP FOR BILATERAL LOWER EXTREMITY ULCERS and perineum wounds that a care while patient was transferring from the bed to the chair. Crum catheter was discontinued patient was able to void on his own Patient had home O2 eval and he will qualify for oxygen 2 L at rest and 4 L with activity. Spiriva was discontinued as well as Symbicort and Lasix. patient was started on Trelegy Ellipta and Bumex consults obtained: pulmon
--- NOTE | 2020-06-01 15:56 | PCPTNOTE ---
The patient treatment was not able to be completed today. Will plan to continue treatment per plan of care.
[2020-06-01 16:13] LABS: Glucose Point of Care 241 (65-105)
== END 2020-06-01 17:05 | disposition home health service (06) | DRG 189 ==
LOC: ANHED 19:28 → ANHIMU 22:06 → ANH3MEDSUR 06-01 12:01 → ANHIMU 06-04 14:03
PROVIDERS: Internal Medicine Pulmonary Disease; Admitting Provider Internal Medicine; Emergency Provider General Practice; PCP Internal Medicine; Visit Provider Internal Medicine
DX: J96.22 Acute and chronic respiratory failure with hypercapnia (principal); I50.33 Acute on chronic diastolic (congestive) heart failure; Z68.43 Body mass index [BMI] 50.0-59.9, adult; D83.9 Common variable immunodeficiency, unspecified; I48.92 Unspecified atrial flutter; E66.01 Morbid (severe) obesity due to excess calories; I11.0 Hypertensive heart disease with heart failure; J44.9 Chronic obstructive pulmonary disease, unspecified; R91.1 Solitary pulmonary nodule; G47.33 Obstructive sleep apnea (adult) (pediatric); E11.42 Type 2 diabetes mellitus with diabetic polyneuropathy; N40.0 Benign prostatic hyperplasia without lower urinary tract symptoms; I89.0 Lymphedema, not elsewhere classified; Z99.81 Dependence on supplemental oxygen; Z79.01 Long term (current) use of anticoagulants; Z79.4 Long term (current) use of insulin; Z79.899 Other long term (current) drug therapy; Z87.891 Personal history of nicotine dependence
CPT/HCPCS: 36415; 36600; 70450; 71045; 71250; 72100; 73502; 80048; 80053; 81003; 82375; 82805; 82948; 83036; 83050; 83880; 84484; 85025; 85027; 85610; 85730; 86140; 87040; 93005; 94002; 94003; 94618; 94762; 96374; 97110; 97116; 97161; 97165; 97530; 97535; 99285; A9270; C8929; G0378; J1815; J1940; Q9957

== ENCOUNTER 2020-08-17 15:35 | Outpatient (CLI) | payer MEDICARE, SELFPAY ==
[2020-08-17 16:04] LABS: Anion Gap 8 mmol/L (8-16); Blood Urea Nitrogen 44 mg/dL (9-20); Calcium 9.3 mg/dL (8.4-10.2); Carbon Dioxide 31 mmol/L (22-30); Chloride 100 mmol/L (98-107); Estimated Glomerular Filt Rate 43; Glucose 202 mg/dL (75-110); Potassium 5.4 mmol/L (3.4-5.0); Sodium 139 mmol/L (137-145)
== END 2020-08-17 15:36 | disposition home or self-care (01) ==
PROVIDERS: PCP Internal Medicine; Visit Provider Nurse Practitioner Adult Health
DX: I50.32 Chronic diastolic (congestive) heart failure (principal)
CPT/HCPCS: 36415; 80048

== ENCOUNTER 2021-01-18 12:30 | Outpatient (CLI) | payer MEDICARE, MEDICAID, SELFPAY ==
[2021-01-18 13:00] VITALS: PULSE 91; O2SAT 90
[2021-01-18 13:05] VITALS: PULSE 99; O2SAT 86
[2021-01-18 13:10] VITALS: PULSE 99; O2SAT 88
[2021-01-18 13:15] VITALS: PULSE 101; O2SAT 91
[2021-01-18 13:25] VITALS: PULSE 83; O2SAT 90
--- NOTE | 2021-01-18 15:29 | HOMEO2EVAL ---
Evaluation was performed at [facility] Home Oxygen Evaluation RC: Home Oxygen (O2) Evaluation Start: 01/18/21 15:26 Freq: Status: Active Protocol: RPE Activity Type Activity Date Activity User E-Sign Co-Sign Detail Recorded Client Recorded Date Recorded By Document 01/18/21 13:00 [email or web address] 01/18/21 15:29 AMAURI Document 01/18/21 13:05 [email or web address] 01/18/21 15:29 AMAURI Document 01/18/21 13:10 [email or web address] 01/18/21 15:29 AMAURI Document 01/18/21 13:15 [email or web address] 01/18/21 15:29 AMAURI Document 01/18/21 13:25 [email or web address] 01/18/21 15:29 AMAURI 01/18/21 01/18/21 01/18/21 13:00 13:05 13:10 Home O2 Evaluation Test Phase Resting Exercise Exercise Oxygen Delivery Room Air Room Air Nasal Cannula Oxygen Flow Rate (L/min) 1 Pulse Oximetry (90-100 %) 90 86 L 88 L Pulse Rate (60-100 beats/min) 91 99 99 Activity Tolerance Ambulation Distance (feet) Treatment Charges O2 Evaluation - Outpatient 01/18/21 01/18/21 13:15 13:25 Home O2 Evaluation Test Phase Exercise Resting Oxygen Delivery Nasal Cannula Room Air Oxygen Flow Rate (L/min) 2 Pulse Oximetry (90-100 %) 91 90 Pulse Rate (60-100 beats/min) 101 H 83 Activity Tolerance Poor Ambulation Distance (feet) 150 Treatment Charges
--- NOTE | 2021-01-18 16:29 | WPDPFTINT ---
PFT Procedure Performed PFT Procedure Performed Spirometry with Pre/Post Bronchodilator Plethysmography (Lung Vol) Diffusing Cap (DLCO) Flow Vol Loop PFT Interpretation This is a pulmonary function test with pre and post-bronchodilator spirometry, plethysmography and diffusing capacity. The test was performed and results interpreted in accordance with the 2019 and 2005 ATS/ERS Task Force guidelines respectively using the Global Lung Function Initiative-2012 reference equations. Patient demonstrated good effort and cooperation. Reproducibility criteria were met. The quality of the pre bronchodilator spirometry maneuver was Grade A and post bronchodilator spirometry maneuver was Grade A. Findings: Spirometry: the contour the inspiratory and expiratory flow tracing are normal. The pre bronchodilator FVC is 1.69 L, 44% predicted. The pre bronchodilator FEV1 is 1.42 L, 48% predicted. The FEV1: FVC ratio was 84%. The post bronchodilator FVC is 1.73 L, representing a 3% increase. The post bronchodilator FEV1 is 1.39 L, representing a 2% decrease. Plethysmography: The total lung capacity is 3.84 L, 62% predicted. The functional residual capacity is 1.18 L, 36% predicted. The residual volume is 1.02 L, 47% predicted. Diffusion capacity: The absolute diffusion capacity is 13.8, 55% predicted. The diffusing capacity corrected for alveolar volume is 5.28, 124% predicted. In comparison to previous pulmonary function test in our laboratory on 01/22/2016 the post bronchodilator FVC has decreased from 2.16 L to 1.73 L. The post bronchodilator FEV1 has decreased from 1.75 L to 1.39 L. The total lung capacity is unchanged from 3.83 L to 3.84 L. The functional residual capacity has decreased from 1.87 L to 1.18 L. The residual volume has decreased from 1.76 L to 1.02 L. The absolute diffusing capacity has decreased from 18.3 to 13.8. The diffusing capacity corrected for alveolar volume is unchanged from 5.63 to 5.28. Impression: There is a severe restrictive ventilatory abnormality. The spirometry is normal without evidence of an obstructive abnormality. There is no significant improvement after inhaling a single dose of albuterol. The absolute diffusing capacity is moderately decreased and normalizes when corrected for alveolar volume. When compared to previous pulmonary function tests on 01/22/2016 there has been a greater than anticipated time dependent decrease in FVC, FEV1, functional residual capacity, residual volume and the absolute diffusing capacity with no significant change in the total lung capacity or the diffusing capacity corrected for alveolar volume. Clinical correlation is recommended.
== END 2021-01-18 12:31 | disposition home or self-care (01) ==
PROVIDERS: PCP Internal Medicine; Visit Provider Physician Assistant
DX: J96.11 Chronic respiratory failure with hypoxia (principal); J96.12 Chronic respiratory failure with hypercapnia; R94.2 Abnormal results of pulmonary function studies
CPT/HCPCS: 94060; 94618; 94726; 94729

== ENCOUNTER 2022-07-15 15:40 | Outpatient (CLI) | payer MEDICARE, MEDICAID, SELFPAY ==
--- NOTE | ~2022-07-15 | XR_ITS ---
AP and lateral views of the right hip Clinical history: Pain Findings: No acute fracture or dislocation is seen. Osseous alignment is anatomic. There is minimal d egenerative change of the right hip joint. Soft tissues are unremarkable. Impression: Minimal degenerative change of the right hip joint. Reviewed, dictated and finalized at location . Impression: Minimal degenerative change of the right hip joint.
--- NOTE | ~2022-07-15 | XR_ITS ---
XR chest 2V 07/15/2022 16:29 Indication: Long-term current use of amiodarone Procedure: AP and lateral views of the chest Comparison: 2 view chest Findings: Cardiomegaly. Bibasilar linear infiltrates may represent atelectasis/scarring or developing pneumonia. No significant effusion or pneumothorax. No acute osseous abnormality. Impression: 1: Linear bibasilar infiltrates may represent atelectasis/scarring or developing pneumonia. 2: Cardiomegaly. Reviewed, dictated and finalized at location L. Impression: 1: Linear bibasilar infiltrates may represent atelectasis/scarring or developin g pneumonia. 2: Cardiomegaly.
== END 2022-07-15 15:41 | disposition home or self-care (01) ==
PROVIDERS: PCP Internal Medicine; Referring Provider Nurse Practitioner Adult Health; Visit Provider Internal Medicine
DX: M16.11 Unilateral primary osteoarthritis, right hip (principal); Z79.899 Other long term (current) drug therapy; I51.7 Cardiomegaly; R91.8 Other nonspecific abnormal finding of lung field
CPT/HCPCS: 71046; 73502